=== PATIENT | female | born 1980 | race American Indian/Alaskan Native ===

== ENCOUNTER 2017-05-08 21:44 | Inpatient (IN) | payer SELFPAY ==
[2017-05-08] MEDS ORDERED: DUONEB *Not for PRN Use IH ONE ×2 (22:04→23:16)
[2017-05-08 22:14] LABS: Basophils % (Auto) 0.5 % (0.0-1.8); Eosinophils % (Auto) 0.7 % (0.0-4.3); Mean Corpuscular HGB Conc 31 % (30-34); Mean Corpuscular Hemoglobin 28 pg (28-32); Mean Corpuscular Volume 91 fl (79-97); Platelet Count 261 K/mm3 (140-440); Red Blood Count 4.44 M/mm3 (3.65-5.03); Red Cell Distribution Width 15.9 % (13.2-15.2); White Blood Count 7.8 K/mm3 (4.5-11.0)
[2017-05-08 22:15] LABS: Hematocrit 40.4 % (30.3-42.9); Hemoglobin 12.4 gm/dl (10.1-14.3)
[2017-05-08 22:33] LABS: Blood Urea Nitrogen 11 mg/dL (7-17); Carbon Dioxide 25 mmol/L (22-30)
[2017-05-08 22:34] LABS: Anion Gap 16 mmol/L; BUN/Creatinine Ratio 13.75; Chloride 99.6 mmol/L (98-107); Glucose 94 mg/dL (65-100); Potassium 3.6 mmol/L (3.6-5.0); Sodium 137 mmol/L (137-145)
[2017-05-09] MEDS ORDERED: DUONEB *Not for PRN Use IH ONE (01:02)
[2017-05-09] MEDS ORDERED: MAGNESIUM SULFATE 2GM/50ML 2 GM/50 ML BAG IV ONE (01:03)
--- NOTE | 2017-05-09 01:09 | Emergency Department Report ---
ED Shortness of Breath HPI - General Chief Complaint: Chest Pain Stated Complaint: CHEST PAIN/SOB Time Seen by Provider: 05/09/17 00:21 Source: patient Mode of arrival: Ambulatory Limitations: No Limitations - History of Present Illness Initial Comments: 36-year-old female past medical history CVA, hypertension, smoker, asthma presents with complaint of worsening shortness of breath since this morning. On exam patient is audibly wheezing states she feels very short of breath speaking in broken sentences. Patient denies chest pain no pleuritic aspect to the symptoms. She does however state that she is beginning to feel chest pressure. Patient is accompanied by . States she has gotten progressively short of breath throughout the course of the day. States she ran out of her asthma medicines. MD Complaint: shortness of breath, "asthma attack" Onset/Timin -: This morning Severity: severe Quality: other (shortness of breath) Consistency: constant Improves With: nothing Known History Of: asthma Context: smoke/fume exposure - Related Data Home Oxygen Therapy: No Previous Rx's Medication Instructions Recorded Last Taken Type Pregabalin [Lyrica] 25 mg PO BID #60 capsule 09/03/16 Unknown Rx Allergies Allergy/AdvReac Type Severity Reaction Status Date / Time morphine Allergy Angioedema Verified 05/09/17 03:22 acetaminophen [From Percocet] AdvReac Unknown Verified 05/09/17 03:22 oxycodone HCl [From Percocet] AdvReac Unknown Verified 05/09/17 03:22 ED Review of Systems ROS: Stated complaint: CHEST PAIN/SOB Other details as noted in HPI Constitutional: denies: chills, fever Eyes: denies: eye pain, eye discharge, vision change ENT: denies: ear pain, throat pain Respiratory: shortness of breath, SOB at rest, wheezing. denies: cough Cardiovascular: denies: chest pain, palpitations Endocrine: no symptoms reported Gastrointestinal: denies: abdominal pain, nausea, diarrhea Genitourinary: denies: urgency, dysuria, discharge Musculoskeletal: denies: back pain, joint swelling, arthralgia Skin: denies: rash, lesions Neurological: denies: headache, weakness, paresthesias Psychiatric: denies: anxiety, depression Hematological/Lymphatic: denies: easy bleeding, easy bruising ED Past Medical Hx - Past Medical History Hx CVA: Yes (right side weakness.) Hx Asthma: Yes - Surgical History Additional Surgical History: tubal ligation/ csection - Social History Smoking Status: Current Every Day Smoker Substance Use Type: None - Medications Home Medications: Home Medications Medication Instructions Recorded Confirmed Last Taken Type Pregabalin [Lyrica] 25 mg PO BID #60 capsule 09/03/16 Unknown Rx ED Physical Exam - General Limitations: No Limitations General appearance: alert, in no apparent distress - Head Head exam: Present: atraumatic, normocephalic - Eye Eye exam: Present: normal appearance, PERRL, EOMI - ENT ENT exam: Present: mucous membranes moist - Neck Neck exam: Present: normal inspection - Respiratory Respiratory exam: Present: wheezes (patient has loud wheezing bilaterally in both lung devine). Absent: respiratory distress - Cardiovascular Cardiovascular Exam: Present: regular rate, normal rhythm. Absent: systolic murmur, diastolic murmur, rubs, gallop - GI/Abdominal GI/Abdominal exam: Present: soft, normal bowel sounds - Extremities Exam Extremities exam: Present: normal inspection - Back Exam Back exam: Present: normal inspection - Neurological Exam Neurological exam: Present: alert, oriented X3 - Psychiatric Psychiatric exam: Present: normal affect, normal mood - Skin Skin exam: Present: warm, dry, intact, normal color. Absent: rash ED Course Vital Signs 05/08/17 05/08/17 05/08/17 21:58 22:18 22:30 Temperature 98.8 F Pulse Rate 89 Pulse Rate [ 75 77 Throughout] Respiratory 16 Rate Respiratory 20 20 Rate [ Throughout] Blood Pressure 143/83 Blood Pressure [Right] O2 Sat by Pulse 96 Oximetry 05/08/17 05/08/17 05/09/17 23:19 23:25 01:45 Temperature Pulse Rate 104 H Pulse Rate [ 78 80 Throughout] Respiratory 24 Rate Respiratory 20 20 Rate [ Throughout] Blood Pressure Blood Pressure 115/69 [Right] O2 Sat by Pulse 100 Oximetry 05/09/17 05/09/17 05/09/17 02:24 02:56 03:12 Temperature Pulse Rate 85 105 H Pulse Rate [ Throughout] Respiratory 30 H 21 26 H Rate Respiratory Rate [ Throughout] Blood Pressure 140/83 Blood Pressure 140/83 [Right] O2 Sat by Pulse 100 Oximetry 05/09/17 03:22 Temperature Pulse Rate Pulse Rate [ 87 Throughout] Respiratory Rate Respiratory 20 Rate [ Throughout] Blood Pressure Blood Pressure [Right] O2 Sat by Pulse Oximetry ED Medical Decision Making - Lab Data Result diagrams: 05/08/17 22:06 05/08/17 22:06 - Medical Decision Making A/P: Asthma exacerbation wheezing, shortness of breath 1-EKG sinus rhythm, chest x-ray within normal limits, troponin negative 2 2-patient has received 3 DuoNeb treatments 125 mg of Solu-Medrol and IV magnesium with minimal improvement of her symptoms. Patient states she feels very short of breath even though she has received all the treatments. Patient still visibly short of breath at rest lying down on stretcher 3-I discussed the case with Dr. Chambers and will admit the patient for persistent asthma exacerbation and shortness of breath 4- I ordered respiratory to put patient on BiPAP to assist with work of breathing 5- i informed Dr. Bain of need for admission, I discused case with her Critical care attestation.: If time is entered above; I have spent that time in minutes in the direct care of this critically ill patient, excluding procedure time. ED Disposition Clinical Impression: Asthma attack Disposition: -09 OP ADMIT IP TO THIS HOSP Is pt being admited?: Yes Does the pt Need Aspirin: No Condition: Stable Referrals: PRIMARY CARE, [Primary Care Provider] - 3-5 Days
--- NOTE | 2017-05-09 01:36 | XRay Report ---
FINAL REPORT PROCEDURE: XR CHEST ROUTINE 2V TECHNIQUE: PA and lateral chest radiographs were obtained. CPT 53217 HISTORY: sob COMPARISON: No prior studies are available for comparison. FINDINGS: Heart: Normal. Mediastinum/Vessels: Normal. Lungs/Pleural space: Normal. Bony thorax: No acute osseous abnormality. Other: IMPRESSION: Normal examination.
[2017-05-09] MEDS ORDERED: PROVENTIL IH ONE (03:06)
[2017-05-09] MEDS ORDERED: ZOFRAN IV PRN (04:39)
[2017-05-09] MEDS ORDERED: DULCOLAX PR PRN (04:39)
[2017-05-09] MEDS ORDERED: MILK OF MAGNESIA PO PRN (04:39)
--- NOTE | 2017-05-09 04:39 | History and Physical Report ---
History of Present Illness Date of examination: 05/09/17 History of present illness: 36-year-old woman with a history of hypertension, stroke comes emergency room with complaints of shortness of breath at started this morning, wheezing and cough productive of brown phlegm. Patient ran out of her nebulizer treatment Patient denies chest pain, palpitation, s abdominal pain, hematochezia, dysuria , frequency, focal weakness, dysarthria, fever chills, polydipsia polyuria, hot or cold intolerance, easy bruisability, or rash or bleeding from mucosal membrane, rhinorrhea, epistaxis, earache, tinnitus, blurry vision, eye discharge , anxiety, depression. Other review of systems negative PAST SURGICAL HISTORY: 2 SOCIAL HISTORY: Smoke Cigarettes, no alcohol or drugs FAMILY HISTORY: Hypertension Medications and Allergies Allergies Allergy/AdvReac Type Severity Reaction Status Date / Time morphine Allergy Angioedema Verified 05/09/17 03:22 acetaminophen [From Percocet] AdvReac Unknown Verified 05/09/17 03:22 oxycodone HCl [From Percocet] AdvReac Unknown Verified 05/09/17 03:22 Home Medications Medication Instructions Recorded Confirmed Last Taken Type Pregabalin [Lyrica] 25 mg PO BID #60 capsule 09/03/16 05/09/17 05/08/17 21:00 Rx Exam - Physical Exam Narrative exam: Gen. appearance: Patient lying in bed, no apparent distress BiPAP HEENT: Normocephalic, atraumatic, pupils equally round and reactive to light, extraocular movement intact, and no sclericterus,. No JVD or thyromegaly or nodule,neck supple, no carotid bruit ,mucous membranes moist, no exudate or erythema Heart: S1, S2, regular rate and rhythm Lungs: Wheezing bilaterally, decreased air entry ,breathing comfortable Abdomen: Positive bowel sounds, nontender, nondistended, no organomegaly Extremity: No edema, cyanosis, clubbing Skin: No rash, nodules, warm, dry Neuro: Oriented 3, cranial nerves II-12 intact, speech is fluent, motor and sensory intact - Constitutional Vitals: Temp Pulse Resp BP Pulse Ox 98.8 F 83 23 140/83 100 05/08/17 21:58 05/09/17 04:15 05/09/17 04:15 05/09/17 03:12 05/09/17 02:56 Results - Labs CBC & Chem 7: 05/08/17 22:06 05/08/17 22:06 Labs: Abnormal lab results 05/08/17 Range/Units 22:06 RDW 15.9 H (13.2-15.2) % Assessment and Plan Acute respiratory failure Asthma exacerbation Hypertension History of CVA Admit to medicine Continue BiPAP Start high-dose steroids, nebulizer treatment, antibiotic Obtain sputum culture, start DVT prophylaxis
[2017-05-09] MEDS: ZITHROMAX 500 MG in NACL 0.9% 250ML 250 ML IV SCH (06:14)
[2017-05-09] MEDS: DUONEB *Not for PRN Use IH SCH ×3 (09:49→21:33)
[2017-05-09] MEDS ORDERED: LOVENOX SUB-Q SCH (10:00)
[2017-05-09] MEDS: LOVENOX SUB-Q SCH (10:30)
[2017-05-09] MEDS: LYRICA PO SCH ×2 (10:31→21:45)
[2017-05-09] MEDS: FIORICET PO PRN ×2 (17:49→21:45)
[2017-05-10] MEDS: DUONEB *Not for PRN Use IH SCH ×4 (02:29→20:56)
[2017-05-10] MEDS: ZITHROMAX 500 MG in NACL 0.9% 250ML 250 ML IV SCH (05:07)
[2017-05-10] MEDS: FIORICET PO PRN ×3 (05:42→20:34)
[2017-05-10 07:50] LABS: Hematocrit 33.5 % (30.3-42.9); Hemoglobin 10.8 gm/dl (10.1-14.3); Mean Corpuscular HGB Conc 32 % (30-34); Mean Corpuscular Hemoglobin 27 pg (28-32); Mean Corpuscular Volume 84 fl (79-97); Platelet Count 236 K/mm3 (140-440); Red Blood Count 3.99 M/mm3 (3.65-5.03); Red Cell Distribution Width 15.1 % (13.2-15.2)
[2017-05-10 08:08] LABS: BUN/Creatinine Ratio 15.71; Blood Urea Nitrogen 11 mg/dL (7-17); Calcium 8.8 mg/dL (8.4-10.2); Carbon Dioxide 20 mmol/L (22-30); Chloride 102.2 mmol/L (98-107); Glucose 170 mg/dL (65-100); Sodium 139 mmol/L (137-145)
[2017-05-10 08:13] LABS: White Blood Count 20.2 K/mm3 (4.5-11.0)
[2017-05-10 08:47] LABS: Anion Gap 21 mmol/L; Potassium 4.7 mmol/L (3.6-5.0)
[2017-05-10] MEDS: LOVENOX SUB-Q SCH (09:29)
[2017-05-10] MEDS: LYRICA PO SCH ×2 (09:30→22:25)
[2017-05-10 10:15] LABS: Basophils % (Manual) 0 % (0.0-1.8); Blastocytes % (Manual) 0 %; Eosinophils % (Manual) 0 % (0.0-4.3); Total Cells Counted Percent 0
[2017-05-10 10:16] LABS: Anisocytosis 1+; Diff Status Complete; Platelet Estimate Cons
[2017-05-10] MEDS ORDERED: PNEUMOVAX 23 IM ONE (12:00)
--- NOTE | 2017-05-10 16:40 | Progress Note ---
Assessment and Plan - Patient Problems (1) Acute respiratory failure with hypoxia Current Visit: Yes Status: Acute Plan to address problem: Patient started on Neb treatments Steroids and Abx Improving clinically (2) Leukocytosis (leucocytosis) Current Visit: Yes Status: Acute Qualifiers: Leukocytosis type: L Plan to address problem: Sec to steroids?? 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 Plan to address problem: on ASA 81 mg po qd (5) HTN (hypertension) Current Visit: Yes Status: Chronic Qualifiers: Hypertension type: essential hypertension Qualified Code(s): I10 - Essential (primary) hypertension Plan to address problem: Added Losartan 100 mg po qd (6) DVT prophylaxis Current Visit: Yes Status: Acute (7) Deep vein thrombosis (DVT) prophylaxis prescribed at discharge Current Visit: Yes Status: Acute Plan to address problem: On lovenox 40 mg sq qd Subjective Date of service: 05/10/17 Principal diagnosis: Asthma exacerbation and resp failure Interval history: Improved.Some Sob present. Meds adjusted today.. Objective - Exam Narrative Exam: Patient comfortable. - Constitutional Vitals: Vital Signs - 12hr 05/10/17 05/10/17 05/10/17 05:00 07:55 11:40 Temperature 98.9 F 98.7 F 97.4 F L Pulse Rate Pulse Rate [ Posterior Bilateral Throughout] Pulse Rate [ 80 68 58 L Right Radial] Pulse Rate [ Throughout] Respiratory 20 20 24 Rate Respiratory Rate [Posterior Bilateral Throughout] Respiratory Rate [ Throughout] Blood Pressure 134/93 154/85 146/92 [Right Arm] O2 Sat by Pulse 98 98 100 Oximetry 05/10/17 05/10/17 05/10/17 14:12 14:25 14:26 Temperature Pulse Rate 76 Pulse Rate [ 80 78 Posterior Bilateral Throughout] Pulse Rate [ Right Radial] Pulse Rate [ 80 Throughout] Respiratory 24 Rate Respiratory 20 20 Rate [Posterior Bilateral Throughout] Respiratory 20 Rate [ Throughout] Blood Pressure [Right Arm] O2 Sat by Pulse 100 Oximetry General appearance: Present: no acute distress, well-nourished - EENT Eyes: PERRL, EOM intact ENT: hearing intact, clear oral mucosa Ears: bilateral: normal - Neck Neck: supple, normal ROM - Respiratory Respiratory effort: normal Respiratory: bilateral: diminished, rhonchi - Breasts Breasts: normal - Cardiovascular Heart rate: 80 Rhythm: regular Heart Sounds: Present: S1 & S2. Absent: gallop, rub Extremities: pulses intact, No edema, normal color, Full ROM - Gastrointestinal General gastrointestinal: Present: soft, non-tender, non-distended, normal bowel sounds - Genitourinary Female genitourinary: normal - Integumentary Integumentary: clear, warm, dry - Musculoskeletal Musculoskeletal: 1, strength equal bilaterally - Neurologic Neurologic: moves all extremities - Psychiatric Psychiatric: memory intact, appropriate mood/affect, intact judgment & insight - Labs CBC & Chem 7: 05/10/17 07:24 05/10/17 07:24 Labs: Abnormal lab results 05/10/17 05/10/17 Range/Units 07:24 07:24 WBC 20.2 H (4.5-11.0) K/mm3 MCH 27 L (28-32) pg Seg Neuts % (Manual) 98.0 H (40.0-70.0) % Lymphocytes % (Manual) 2.0 L (13.4-35.0) % Seg Neutrophils # Man 19.8 H (1.8-7.7) K/mm3 Lymphocytes # (Manual) 0.4 L (1.2-5.4) K/mm3 Carbon Dioxide 20 L (22-30) mmol/L Glucose 170 H (65-100) mg/dL
[2017-05-10] MEDS ORDERED: PROVENTIL IH PRN (23:24)
[2017-05-11] MEDS: FIORICET PO PRN ×3 (00:18→14:17)
[2017-05-11] MEDS: DUONEB *Not for PRN Use IH SCH ×3 (02:51→14:00)
[2017-05-11] MEDS: ZITHROMAX 500 MG in NACL 0.9% 250ML 250 ML IV SCH (05:17)
[2017-05-11 09:01] VITALS: BP 140/91
[2017-05-11] MEDS ORDERED: COZAAR PO SCH (10:00)
--- NOTE | 2017-05-11 10:11 | Discharge Summary ---
Providers - Providers Date of Admission: 05/09/17 04:39 Date of discharge: 05/11/17 Attending physician: CAMILLA WATTS MD Primary care physician: NEDA MIRELES MD Hospitalization Condition: Stable Hospital course: 36-year-old woman with a past medical history of hypertension, stroke who presents to the emergency room with complaints of shortness of breath. Patient was diagnosed with acute respiratory failure ,asthma exacerbation, hypertension and leukocytosis. She has been Treated with empiric antibiotic for respiratory infection. Patient completed the full course of antibiotic. Also she has treated with nebulizer treatment, IV steroid and oxygen supplement. Patient currently on room air with oxygen saturation greater than 95%, no acute respiratory distress noted. Patient ambulated the hallways without shortness of breath. Patient advice to follow up with her primary provider for her asthma. Disposition: DC- TO HOME OR SELFCARE Core Measure Documentation - Palliative Care Palliative Care/ Comfort Measures: Not Applicable - Core Measures Any of the following diagnoses?: none Exam - Constitutional Vitals: Temp Pulse Resp BP Pulse Ox 98.3 F 85 20 140/91 98 05/11/17 08:00 05/11/17 08:17 05/11/17 08:17 05/11/17 08:00 05/11/17 08:02 General appearance: Present: no acute distress - EENT Eyes: Present: PERRL ENT: hearing intact - Neck Neck: Present: supple - Respiratory Respiratory effort: normal Respiratory: bilateral: wheezing (mild, medically cleared) - Cardiovascular Heart rate: 104 Rhythm: regular Heart Sounds: Present: S1 & S2 - Extremities Extremities: no ischemia Peripheral Pulses: within normal limits - Abdominal General gastrointestinal: Present: soft, non-tender Female genitourinary: Present: deferred - Rectal Rectal Exam: deferred - Integumentary Integumentary: Present: clear, warm, dry - Musculoskeletal Musculoskeletal: strength equal bilaterally - Psychiatric Psychiatric: appropriate mood/affect - Neurologic Neurologic: CNII-XII intact - Allied Health Allied health notes reviewed: nursing Plan Activity: no restrictions Weight Bearing Status: Weight Bear as Tolerated Diet: low fat Follow up with: PRIMARY CARE, [Primary Care Provider] - 3-5 Days Prescriptions: ALBUTEROL Inhaler [ProAir HFA Inhaler] 2 puff IH QID PRN #1 inhalation PRN Reason: Shortness Of Breath ALBUTEROL NEB's [Proventil 0.083% NEBS] 2.5 mg IH Q4HRT PRN #120 nebu PRN Reason: Shortness Of Breath Butalb/Acetamin/Caff 50-325-40 [Fioricet] 2 tab PO Q4H PRN #14 tablet PRN Reason: Headache Fluticasone/Salmeterol [Advair Diskus 250-50 mcg] 1 puff IH BID #1 disk.w.dev Losartan [Cozaar] 100 mg PO QDAY #60 tablet Montelukast [Singulair] 10 mg PO QPM #30 tablet Prednisone [predniSONE 10 mg (6-Day Pack, 21 Tabs)] 10 mg PO .TAPER #1 tab.ds.pk
[2017-05-11] MEDS: LOVENOX SUB-Q SCH (11:00)
[2017-05-11] MEDS: LYRICA PO SCH (11:02)
--- NOTE | 2017-05-11 16:30 | Admit Criteria Form ---
Admission Criteria Documentation: RESPIRATORY FAILURE GRG Clinical Indications for Admission to Inpatient Care (Place 'X' for any and all applicable criteria): Hospital admission is needed for appropriate care of the patient because of acute respiratory failure or insufficiency as indicated by ANY ONE of the following(1)(2)(3)(4)(5)(6)(7)(8): [X ]I. Mechanical ventilation needed (acute invasive or noninvasive) [ ]II. Severe ventilation deficit as indicated by ANY ONE of the following (9) [ ]a) Respiratory acidosis (pH less than 7.32 and partial pressure of carbon dioxide greater than 40 mm Hg (5.3 kPa)) [ ]b) Partial pressure of carbon dioxide greater than 44 mm Hg (5.9 kPa ) (new) [ ]c) Airflow measurements less than 25% of predicted (eg, peak expiratory flow rate less than 100 L/minute) [ ]d) Forced vital capacity less than 15 mL/kg of ideal body weight, or 50% decrease in vital capacity from baseline [ ]III. Noncardiac pulmonary edema not resolving with rapid emergency treatment (8) [ ]IV. Severe respiratory distress as indicated by ANY ONE of the following: [ ]a) Severe tachypnea (respiratory rate greater than 30, greater than 45 for 6-month-old, greater than 60 for ) [ ]b) Severe hypoxemia (partial pressure of oxygen less than 50 mm Hg ( 6.7 kPa) on greater than 50% oxygen or partial pressure of oxygen to FIO2 ratio less than 200) [ ]c) Mental status deterioration from respiratory disease [ ]V. Airway obstruction or inadequate protection [A](10)(11) The original [employer] content created by [employer] has been revised. The portions of the content which have been revised are identified through the use of italic text or in bold, and [employer] has neither reviewed nor approved the modified material. All other unmodified content is copyright [employer]. Please see references footnoted in the original [employer] edition 2016 Admission Criteria Met: Yes
--- NOTE | 2017-05-11 18:32 | Discharge Summary ---
Providers - Providers Date of Admission: 05/09/17 04:39 Attending physician: CAMILLA WATTS MD Primary care physician: MARKETING SERVICES COORDINATOR Hospitalization Condition: Stable Hospital course: 36-year-old woman with a previous history of asthma in childhood. He presented with a few days of worsening shortness of breath and wheezing. She had not been taking any medications she will have been in remission with regards asthma for many years. She was found to be some accessory muscles, and had respiratory failure, therefore she was treated with noninvasive rescue BiPAP, she was weaned to supplemental oxygen. She was treated with steroids antibiotics and aggressive nebulizer treatment. She clinically improves, she was weaned off steroids, exercise testing did not provoke any further wheezing, she was weaned off supplemental oxygen. She clinically improved, sent home on a steroid taper along with necessary inhalers. Discharge diagnoses Acute exacerbation of asthma Acute respiratory failure HTN Disposition: TO HOME OR SELFCARE Time spent for discharge: 35 minutes Core Measure Documentation - Palliative Care Palliative Care/ Comfort Measures: Not Applicable - Core Measures Any of the following diagnoses?: none Exam - Constitutional Vitals: Temp Pulse Resp BP Pulse Ox 98.3 F 104 H 18 140/91 98 05/11/17 08:00 05/11/17 14:00 05/11/17 14:00 05/11/17 11:02 05/11/17 08:02 General appearance: Present: no acute distress, well-nourished - EENT Eyes: Present: PERRL ENT: hearing intact, clear oral mucosa - Neck Neck: Present: supple, normal ROM - Respiratory Respiratory effort: normal Respiratory: bilateral: CTA - Cardiovascular Heart Sounds: Present: S1 & S2. Absent: rub, click - Extremities Extremities: pulses symmetrical, No edema Peripheral Pulses: within normal limits - Abdominal General gastrointestinal: Present: soft, non-tender, non-distended, normal bowel sounds Female genitourinary: Present: normal - Integumentary Integumentary: Present: clear, warm, dry - Musculoskeletal Musculoskeletal: gait normal, strength equal bilaterally - Psychiatric Psychiatric: appropriate mood/affect, intact judgment & insight - Neurologic Neurologic: CNII-XII intact, moves all extremities Plan Follow up with: PRIMARY CARE, [Primary Care Provider] - 3-5 Days Prescriptions: ALBUTEROL Inhaler [ProAir HFA Inhaler] 2 puff IH QID PRN #1 inhalation PRN Reason: Shortness Of Breath ALBUTEROL NEB's [Proventil 0.083% NEBS] 2.5 mg IH Q4HRT PRN #120 nebu PRN Reason: Shortness Of Breath Butalb/Acetamin/Caff 50-325-40 [Fioricet] 2 tab PO Q4H PRN #14 tablet PRN Reason: Headache Fluticasone/Salmeterol [Advair Diskus 250-50 mcg] 1 puff IH BID #1 disk.w.dev Losartan [Cozaar] 100 mg PO QDAY #60 tablet Montelukast [Singulair] 10 mg PO QPM #30 tablet Prednisone [predniSONE 10 mg (6-Day Pack, 21 Tabs)] 10 mg PO .TAPER #1 tab.ds.pk
[2017-05-12] MEDS ORDERED: ZITHROMAX PO SCH (10:00)
== END 2017-05-11 18:45 | disposition home or self-care (01) | DRG 189 ==
LOC: ED 21:44 → 4A 05-09 04:39 → 3A 05-10 21:33
PROVIDERS: ADMIT Internal Medicine; ATTEND Internal Medicine
PROC: 5A09357 Assistance with Respiratory Ventilation, Less than 24 Consecutive Hours, Continuous Positive Airway Pressure (ICD-10-PCS; principal; 2017-05-09)
DX: J96.01 Acute respiratory failure with hypoxia (principal); J45.901 Unspecified asthma with (acute) exacerbation; Z86.73 Personal history of transient ischemic attack (TIA), and cerebral infarction without residual deficits; I10 Essential (primary) hypertension; Z82.49 Family history of ischemic heart disease and other diseases of the circulatory system; Z88.8 Allergy status to other drugs, medicaments and biological substances; Z88.5 Allergy status to narcotic agent; Z98.51 Tubal ligation status; F17.210 Nicotine dependence, cigarettes, uncomplicated; D72.829 Elevated white blood cell count, unspecified
CPT/HCPCS: 36415; 71020; 80048; 83735; 84484; 85007; 85025; 90732; 93005; 93010; 94640; 94660; 96365; 96372; J0456; J1650; J2930; J3475; J7050

== ENCOUNTER 2017-09-11 19:54 | Emergency (ER) | payer SELFPAY ==
[2017-09-11] MEDS ORDERED: TORADOL IM ONE (22:35)
--- NOTE | 2017-09-11 22:39 | Emergency Department Report ---
ED General Adult HPI - General Chief complaint: Pain General Stated complaint: PAIN UPPER EXTREMITIES; BACK/NECK PAIN Time Seen by Provider: 09/11/17 21:22 Source: patient Mode of arrival: Ambulatory Limitations: No Limitations - History of Present Illness Initial comments: 37 yo female who comes in today due to chronic neck/back pain times one month. She denies any mechanism of injury. 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 Denies any pertinent past medical history. Onset/Timin -: month(s) Location: neck, back Radiation: other (left upper extremity ) Severity scale (0 -10): 5 Quality: burning, aching Consistency: intermittent Improves with: none Worsens with: movement Associated Symptoms: denies other symptoms Treatments Prior to Arrival: none - Related Data Previous Rx's Medication Instructions Recorded Last Taken Type Pregabalin [Lyrica] 25 mg PO BID #60 capsule 09/03/16 09/11/17 Rx ALBUTEROL Inhaler [ProAir HFA 2 puff IH QID PRN #1 inhalation 05/11/17 1 Day Ago Rx Inhaler] ALBUTEROL NEB's [Proventil 0.083% 2.5 mg IH Q4HRT PRN #120 nebu 05/11/17 Rx NEBS] Butalb/Acetamin/Caff 50-325-40 2 tab PO Q4H PRN #14 tablet 05/11/17 09/11/17 Rx [Fioricet] Fluticasone/Salmeterol [Advair 1 puff IH BID #1 disk.w.dev 05/11/17 09/11/17 Rx Diskus 250-50 mcg] Losartan [Cozaar] 100 mg PO QDAY #60 tablet 05/11/17 09/11/17 Rx Montelukast [Singulair] 10 mg PO QPM #30 tablet 05/11/17 Unknown Rx Prednisone [predniSONE 10 mg 10 mg PO .TAPER #1 tab.ds.pk 05/11/17 Unknown Rx (6-Day Pack, 21 Tabs)] Allergies Allergy/AdvReac Type Severity Reaction Status Date / Time ibuprofen Allergy Angioedema Verified 09/11/17 20:28 morphine Allergy Angioedema Verified 05/09/17 03:22 acetaminophen [From Percocet] AdvReac Unknown Verified 05/09/17 03:22 oxycodone HCl [From Percocet] AdvReac Unknown Verified 05/09/17 03:22 ED Review of Systems ROS: Stated complaint: PAIN UPPER EXTREMITIES; BACK/NECK PAIN Other details as noted in HPI Constitutional: denies: chills, fever Eyes: denies: eye pain, eye discharge, vision change ENT: denies: ear pain, throat pain Respiratory: denies: cough, shortness of breath, wheezing Cardiovascular: denies: chest pain, palpitations Endocrine: no symptoms reported Gastrointestinal: denies: abdominal pain, nausea, diarrhea Genitourinary: denies: urgency, dysuria, discharge Musculoskeletal: as per HPI Skin: denies: rash, lesions Neurological: denies: headache, weakness, paresthesias Psychiatric: denies: anxiety, depression Hematological/Lymphatic: denies: easy bleeding, easy bruising ED Past Medical Hx - Past Medical History Hx CVA: Yes (right side weakness.) Hx Asthma: Yes - Surgical History Additional Surgical History: tubal ligation/ csection - Social History Smoking Status: Current Some Day Smoker Substance Use Type: Alcohol - Medications Home Medications: Home Medications Medication Instructions Recorded Confirmed Last Taken Type Pregabalin [Lyrica] 25 mg PO BID #60 capsule 09/03/16 09/11/17 09/11/17 Rx ALBUTEROL Inhaler [ProAir HFA 2 puff IH QID PRN #1 inhalation 05/11/17 09/11/17 1 Day Ago Rx Inhaler] ALBUTEROL NEB's [Proventil 0.083% 2.5 mg IH Q4HRT PRN #120 nebu 05/11/1709/11/17 Rx NEBS] Butalb/Acetamin/Caff 50-325-40 2 tab PO Q4H PRN #14 tablet 05/11/17 09/11/1708/18 Rx [Fioricet] Fluticasone/Salmeterol [Advair 1 puff IH BID #1 disk.w.dev 05/11/17 09/11/1708/18 Rx Diskus 250-50 mcg] Losartan [Cozaar] 100 mg PO QDAY #60 tablet 05/11/17 09/11/17 09/11/17 Rx Montelukast [Singulair] 10 mg PO QPM #30 tablet 05/11/17 09/11/17 Unknown Rx Prednisone [predniSONE 10 mg 10 mg PO .TAPER #1 tab.ds.pk 05/11/17 09/11/17 Unknown Rx (6-Day Pack, 21 Tabs)] ED Physical Exam - General Limitations: No Limitations General appearance: alert, in no apparent distress - Head Head exam: Present: atraumatic, normocephalic - Eye Eye exam: Present: normal appearance - ENT ENT exam: Present: mucous membranes moist - Neck Neck exam: Present: normal inspection - Respiratory Respiratory exam: Present: normal lung sounds bilaterally. Absent: respiratory distress - Cardiovascular Cardiovascular Exam: Present: regular rate, normal rhythm. Absent: systolic murmur, diastolic murmur, rubs, gallop - GI/Abdominal GI/Abdominal exam: Present: soft, normal bowel sounds - Back Exam Back exam: Present: normal inspection - Neurological Exam Neurological exam: Present: alert, oriented X3 - Psychiatric Psychiatric exam: Present: normal affect, normal mood - Skin Skin exam: Present: warm, dry, intact, normal color. Absent: rash ED Course Vital Signs 09/11/17 20:30 Temperature 97.1 F L Pulse Rate 93 H Respiratory 16 Rate Blood Pressure 120/66 O2 Sat by Pulse 100 Oximetry Critical care attestation.: If time is entered above; I have spent that time in minutes in the direct care of this critically ill patient, excluding procedure time. ED Disposition Clinical Impression: Radiculopathy of cervical spine, Cervical strain, Lumbosacral pain Disposition: - TO HOME OR SELFCARE Is pt being admited?: No Does the pt Need Aspirin: No Condition: Stable Instructions: Cervical Spine Strain (ED), Cervical Radiculopathy (ED), Low Back Strain (ED), Chronic Pain (ED) Additional Instructions: Please establish with a provider on discharge. Referrals: PRIMARY CARE,MD [Primary Care Provider] - 3-5 Days Time of Disposition: 22:45
[2017-09-12 02:37] VITALS: BP 121/67
== END 2017-09-12 00:01 | disposition home or self-care (01) ==
LOC: ED 19:54
DX: M54.12 Radiculopathy, cervical region (principal); S16.1XXA Strain of muscle, fascia and tendon at neck level, initial encounter; M54.5 Low back pain; F17.210 Nicotine dependence, cigarettes, uncomplicated; Z86.73 Personal history of transient ischemic attack (TIA), and cerebral infarction without residual deficits; Z88.6 Allergy status to analgesic agent; Z88.8 Allergy status to other drugs, medicaments and biological substances; X58.XXXA Exposure to other specified factors, initial encounter; Y93.89 Activity, other specified; Y92.89 Other specified places as the place of occurrence of the external cause; Y99.8 Other external cause status
CPT/HCPCS: 96372; 99282; J2930

== ENCOUNTER 2018-04-11 15:32 | Emergency (ER) | payer SELFPAY ==
[2018-04-11 15:46] VITALS: BP 136/82
--- NOTE | 2018-04-11 16:22 | Emergency Department Report ---
ED General Adult HPI - General Chief complaint: Extremity Injury, Lower Stated complaint: EYE IRRITATION Time Seen by Provider: 04/11/18 15:54 Source: patient Mode of arrival: Ambulatory Limitations: No Limitations - History of Present Illness Initial comments: Ms. Sears is a 37-year-old female who presents with left eye irritation and bilateral leg pain. a bug flew into her eye. she has had itchy sensation ever since. No visual changes no erythema no purulence For 1 week she has bilateral anterior thigh pain. Worse with movement. Worse with flexing. She works long hours on her feet. 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 She denies any trauma. - Related Data Previous Rx's Medication Instructions Recorded Last Taken Type Pregabalin [Lyrica] 25 mg PO BID #60 capsule 09/03/16 09/11/17 Rx ALBUTEROL Inhaler [ProAir HFA 2 puff IH QID PRN #1 inhalation 05/11/17 1 Day Ago Rx Inhaler] ~09/10/17 ALBUTEROL NEB's [Proventil 0.083% 2.5 mg IH Q4HRT PRN #120 nebu 05/11/17 Rx NEBS] Butalb/Acetamin/Caff 50-325-40 2 tab PO Q4H PRN #14 tablet 05/11/17 09/11/17 Rx [Fioricet] Fluticasone/Salmeterol [Advair 1 puff IH BID #1 disk.w.dev 05/11/17 09/11/17 Rx Diskus 250-50 mcg] Losartan [Cozaar] 100 mg PO QDAY #60 tablet 05/11/17 09/11/17 Rx Montelukast [Singulair] 10 mg PO QPM #30 tablet 05/11/17 Unknown Rx Prednisone [predniSONE 10 mg 10 mg PO .TAPER #1 tab.ds.pk 05/11/17 Unknown Rx (6-Day Pack, 21 Tabs)] Allergies Allergy/AdvReac Type Severity Reaction Status Date / Time ibuprofen Allergy Angioedema Verified 09/11/17 20:28 morphine Allergy Angioedema Verified 05/09/17 03:22 acetaminophen [From Percocet] AdvReac Unknown Verified 05/09/17 03:22 oxycodone HCl [From Percocet] AdvReac Unknown Verified 05/09/17 03:22 ED Review of Systems ROS: Stated complaint: EYE IRRITATION Other details as noted in HPI Constitutional: denies: fever, malaise Respiratory: denies: cough Cardiovascular: denies: chest pain Gastrointestinal: denies: abdominal pain, nausea, vomiting Skin: denies: rash ED Past Medical Hx - Past Medical History Previous Medical History?: Yes Hx Hypertension: Yes Hx CVA: Yes (right side weakness.) Hx Asthma: Yes - Surgical History Additional Surgical History: tubal ligation/ csection - Social History Smoking Status: Never Smoker Substance Use Type: None - Medications Home Medications: Home Medications Medication Instructions Recorded Confirmed Last Taken Type Pregabalin [Lyrica] 25 mg PO BID #60 capsule 09/03/16 09/11/17 09/11/17 Rx ALBUTEROL Inhaler [ProAir HFA 2 puff IH QID PRN #1 inhalation 05/11/17 09/11/17 1 Day Ago Rx Inhaler] ~09/10/17 ALBUTEROL NEB's [Proventil 0.083% 2.5 mg IH Q4HRT PRN #120 nebu 05/11/1709/11/17 Rx NEBS] Butalb/Acetamin/Caff 50-325-40 2 tab PO Q4H PRN #14 tablet 05/11/17 09/11/1708/18 Rx [Fioricet] Fluticasone/Salmeterol [Advair 1 puff IH BID #1 disk.w.dev 05/11/17 09/11/1708/18 Rx Diskus 250-50 mcg] Losartan [Cozaar] 100 mg PO QDAY #60 tablet 05/11/17 09/11/17 09/11/17 Rx Montelukast [Singulair] 10 mg PO QPM #30 tablet 05/11/17 09/11/17 Unknown Rx Prednisone [predniSONE 10 mg 10 mg PO .TAPER #1 tab.ds.pk 05/11/17 09/11/17 Unknown Rx (6-Day Pack, 21 Tabs)] ED Physical Exam - General Limitations: No Limitations General appearance: alert, in no apparent distress - Head Head exam: Present: atraumatic, normocephalic - Eye Eye exam: Present: normal appearance, PERRL, EOMI. Absent: scleral icterus, conjunctival injection, nystagmus, periorbital swelling, periorbital tenderness - ENT ENT exam: Present: mucous membranes moist - Neck Neck exam: Present: normal inspection - Respiratory Respiratory exam: Present: normal lung sounds bilaterally. Absent: respiratory distress, wheezes, rales, rhonchi - Cardiovascular Cardiovascular Exam: Present: regular rate, normal rhythm, normal heart sounds. Absent: systolic murmur, diastolic murmur, rubs, gallop - GI/Abdominal GI/Abdominal exam: Present: soft, normal bowel sounds - Extremities Exam Extremities exam: Present: normal inspection, full ROM. Absent: tenderness - Back Exam Back exam: Present: normal inspection, full ROM. Absent: tenderness, CVA tenderness (R), CVA tenderness (L), muscle spasm, paraspinal tenderness, vertebral tenderness - Neurological Exam Neurological exam: Present: alert, oriented X3 - Psychiatric Psychiatric exam: Present: normal affect, normal mood - Skin Skin exam: Present: warm, dry, intact, normal color. Absent: rash ED Course Vital Signs 04/11/18 15:42 Temperature 97.8 F Pulse Rate 70 Respiratory 16 Rate Blood Pressure 136/82 O2 Sat by Pulse 98 Oximetry ED Medical Decision Making - Medical Decision Making 1. Left eye irritation without evidence of conjunctivitis or iritis. Do not suspect foreign body. Recommended [id number] eyedrops 2. 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 ED Disposition Clinical Impression: Irritation of left eye, Bilateral leg pain Disposition: DC-01 TO HOME OR SELFCARE Is pt being admited?: No Does the pt Need Aspirin: No Condition: Stable Instructions: Muscle Cramp (ED) Forms: Work/School Release Form(ED) Time of Disposition: 16:24
== END 2018-04-11 16:40 | disposition home or self-care (01) ==
LOC: ED 15:32
DX: H57.8 Other specified disorders of eye and adnexa (principal); M79.604 Pain in right leg; M79.605 Pain in left leg; I10 Essential (primary) hypertension; J45.909 Unspecified asthma, uncomplicated; Z98.51 Tubal ligation status; Z86.73 Personal history of transient ischemic attack (TIA), and cerebral infarction without residual deficits; Z88.6 Allergy status to analgesic agent; Z88.5 Allergy status to narcotic agent
CPT/HCPCS: 99282

== ENCOUNTER 2019-02-17 13:56 | Emergency (ER) | payer OTHER ==
--- NOTE | 2019-02-17 14:08 | Emergency Department Report ---
Blank Doc - Documentation Documentation: This is a 38-year-old female that presents with generalized pain. This initial assessment/diagnostic orders/clinical plan/treatment(s) is/are subject to change based on patient's health status, clinical progression and re- assessment by fellow clinical providers in the ED. Further treatment and workup at subsequent clinical providers discretion. Patient/guardians urged not to elope from the ED as their condition may be serious if not clinically assessed and managed. Initial orders include: 1- Patient sent to [facility] for further evaluation and treatment 2- labs
[2019-02-17 14:10] VITALS: BP 114/76
[2019-02-17 14:31] LABS: Hematocrit 40.8 % (30.3-42.9); Hemoglobin 13.6 gm/dl (10.1-14.3); Lymphocytes % (Auto) 43.9 % (13.4-35.0); Mean Corpuscular HGB Conc 33 % (30-34); Mean Corpuscular Volume 87 fl (79-97); Monocytes % (Auto) 7.6 % (0.0-7.3); Platelet Count 269 K/mm3 (140-440); Red Blood Count 4.71 M/mm3 (3.65-5.03)
[2019-02-17 14:32] LABS: Basophils % (Auto) 0.6 % (0.0-1.8); Eosinophils # (Auto) 0.1 K/mm3 (0.0-0.4); Eosinophils % (Auto) 1.1 % (0.0-4.3); Lymphocytes # (Auto) 2.7 K/mm3 (1.2-5.4); Monocytes # (Auto) 0.5 K/mm3 (0.0-0.8)
[2019-02-17 14:47] LABS: Alanine Aminotransferase 17 units/L (7-56); Albumin 3.8 g/dL (3.9-5); BUN/Creatinine Ratio 10; Blood Urea Nitrogen 10 mg/dL (7-17); Calcium 8.4 mg/dL (8.4-10.2); Hemolysis Index 20
[2019-02-17 14:49] LABS: Bilirubin,Direct < 0.2 mg/dL (0-0.2)
--- NOTE | 2019-02-17 17:12 | Emergency Department Report ---
ED General Adult HPI - General Chief complaint: Pain General Stated complaint: NECK /RT FOOT PAIN Time Seen by Provider: 02/17/19 14:07 Source: patient Mode of arrival: Ambulatory Limitations: No Limitations - History of Present Illness Initial comments: Pt is a 38 yo female who presents to the ED with c/o left sided upper back pain, left sided lower back pain, and pain down the LLE that began this morning. She states that she woke up with it and believes she may have slept wrong. The patient denies any injury, fall, or trauma. She denies any numbness, tingling, weakness, or bowel/bladder incontinence. She denies ever having previously. She denies any PMHx. She states her only daily medication is low dose aspirin. Severity scale (0 -10): 10 - Related Data Previous Rx's Medication Instructions Recorded Last Taken Type Pregabalin [Lyrica] 25 mg PO BID #60 capsule 09/03/16 09/11/17 Rx ALBUTEROL Inhaler (OR & NICU) 2 puff IH QID PRN #1 inhalation 05/11/17 1 Day Ago Rx [ProAir HFA Inhaler] ~09/10/17 ALBUTEROL NEB's [Proventil 0.083% 2.5 mg IH Q4HRT PRN #120 nebu 05/11/17 09/11/17 Rx NEBS] Butalb/Acetamin/Caff 50-325-40 2 tab PO Q4H PRN #14 tablet 05/11/17 09/11/17 Rx [Fioricet] Fluticasone/Salmeterol [Advair 1 puff IH BID #1 disk.w.dev 05/11/17 09/11/17 Rx Diskus 250-50 mcg] Losartan [Cozaar] 100 mg PO QDAY #60 tablet 05/11/17 09/11/17 Rx Montelukast [Singulair] 10 mg PO QPM #30 tablet 05/11/17 Unknown Rx Cyclobenzaprine [Flexeril] 10 mg PO QHS PRN #10 tablet 02/17/19 Unknown Rx Nitrofurantoin Monohyd/M-Cryst 100 mg PO BID 5 Days #10 capsule 02/17/19 Unknown Rx [Macrobid 100 mg Capsule] Prednisone [predniSONE 10 mg 10 mg PO .TAPER #1 tab.ds.pk 02/17/19 Unknown Rx (6-Day Pack, 21 Tabs)] Allergies Allergy/AdvReac Type Severity Reaction Status Date / Time ibuprofen Allergy Angioedema Verified 09/11/17 20:28 morphine Allergy Angioedema Verified 05/09/17 03:22 acetaminophen [From Percocet] AdvReac Unknown Verified 05/09/17 03:22 oxycodone HCl [From Percocet] AdvReac Unknown Verified 05/09/17 03:22 ED Review of Systems ROS: Stated complaint: NECK /RT FOOT PAIN Other details as noted in HPI Comment: All other systems reviewed and negative ED Past Medical Hx - Past Medical History Previous Medical History?: Yes Hx Hypertension: Yes Hx CVA: Yes (right side weakness.) Hx Asthma: Yes - Surgical History Past Surgical History?: Yes Additional Surgical History: tubal ligation/ csection - Social History Smoking Status: Former Smoker Substance Use Type: None - Medications Home Medications: Home Medications Medication Instructions Recorded Confirmed Last Taken Type Pregabalin [Lyrica] 25 mg PO BID #60 capsule 09/03/16 09/11/17 09/11/17 Rx ALBUTEROL Inhaler (OR & NICU) 2 puff IH QID PRN #1 inhalation 05/11/17 09/11/17 1 Day Ago Rx [ProAir HFA Inhaler] ~09/10/17 ALBUTEROL NEB's [Proventil 0.083% 2.5 mg IH Q4HRT PRN #120 nebu 05/11/17 09/11/17 09/11/17 Rx NEBS] Butalb/Acetamin/Caff 50-325-40 2 tab PO Q4H PRN #14 tablet 05/11/17 09/11/17 09/11/17 Rx [Fioricet] Fluticasone/Salmeterol [Advair 1 puff IH BID #1 disk.w.dev 05/11/17 09/11/17 09/11/17 Rx Diskus 250-50 mcg] Losartan [Cozaar] 100 mg PO QDAY #60 tablet 05/11/17 09/11/17 09/11/17 Rx Montelukast [Singulair] 10 mg PO QPM #30 tablet 05/11/17 09/11/17 Unknown Rx Cyclobenzaprine [Flexeril] 10 mg PO QHS PRN #10 tablet 02/17/19 Unknown Rx Nitrofurantoin Monohyd/M-Cryst 100 mg PO BID 5 Days #10 capsule 02/17/19 Unknown Rx [Macrobid 100 mg Capsule] Prednisone [predniSONE 10 mg 10 mg PO .TAPER #1 tab.ds.pk 02/17/19 Unknown Rx (6-Day Pack, 21 Tabs)] ED Physical Exam - General Limitations: No Limitations General appearance: alert, in no apparent distress - Head Head exam: Present: atraumatic, normocephalic - Eye Eye exam: Present: normal appearance - ENT ENT exam: Present: mucous membranes moist - Neck Neck exam: Present: normal inspection, full ROM. Absent: tenderness - Respiratory Respiratory exam: Present: normal lung sounds bilaterally. Absent: respiratory distress, wheezes, rales, rhonchi, stridor, chest wall tenderness, accessory muscle use, decreased breath sounds, prolonged expiratory - Cardiovascular Cardiovascular Exam: Present: regular rate, normal rhythm, normal heart sounds. Absent: systolic murmur, diastolic murmur, rubs, gallop - Back Exam Back exam: Present: normal inspection, full ROM, paraspinal tenderness (pt has left sided T-spine and L-spine paraspinal muscular tenderness to palpation, no midline tenderness, no step offs, no deformities, pt has some pain in the pain with ROM of the right leg) - Neurological Exam Neurological exam: Present: alert, oriented X3, CN II-XII intact, normal gait, other (normal finger to nose, normal heel to rothman, 5/5 strength in the BLE, BUE, equal gas fitter helper strength, sensation intact, no focal neuro deficit). Absent: motor sensory deficit - Psychiatric Psychiatric exam: Present: normal affect, normal mood - Skin Skin exam: Present: warm, dry, intact ED Course Vital Signs 02/17/19 14:07 Temperature 98.1 F Pulse Rate 98 H Respiratory 16 Rate Blood Pressure 114/76 O2 Sat by Pulse 99 Oximetry ED Medical Decision Making - Lab Data Result diagrams: 02/17/19 14:20 02/17/19 14:20 - Medical Decision Making Pt is a 38 yo female who presents to the ED with c/o left sided upper back pain, left sided lower back pain, and pain down the LLE that began this morning. She states that she woke up with it and believes she may have slept wrong. The p atient denies any injury, fall, or trauma. She denies any numbness, tingling, weakness, or bowel/bladder incontinence. She denies ever having previously. She denies any PMHx. She states her only daily medication is low dose aspirin. Pt has left sided paraspinal tenderness to palpation, no midline tenderness, no neuro deficit. Symptoms and examination consistent with muscle strain and sciatica. Pt given steroid pack and muscle relaxer. Advised to only use muscle relaxer at night as needed and do not drive or operate heavy machinery. UA shows WBCs and leukocyte esterase consistent with UTI pt started on macrobid. Advised to take all medication as prescribed. Return to the emergency room for any new or worsening symptoms. Follow up with a PCP in the next 2-3 days. - Differential Diagnosis strain, sprain, sciatica Critical care attestation.: If time is entered above; I have spent that time in minutes in the direct care of this critically ill patient, excluding procedure time. ED Disposition Clinical Impression: Muscle strain Sciatica Qualifiers: Laterality: left Qualified Code(s): M54.32 - Sciatica, left side Back pain Qualifiers: Back pain location: low back pain Chronicity: acute Back pain laterality: left Sciatica presence: with sciatica Sciatica laterality: sciatica of left side Qualified Code(s): M54.42 - Lumbago with sciatica, left side UTI (urinary tract infection) Qualifiers: Urinary tract infection type: acute cystitis Hematuria presence: without hematuria Qualified Code(s): N30.00 - Acute cystitis without hematuria Disposition: TO HOME OR SELFCARE Is pt being admited?: No Does the pt Need Aspirin: No Condition: Stable Instructions: Muscle Strain (ED), Urinary Tract Infection in Women (ED), Sciatica (ED) Additional Instructions: Please follow up with an orthopedic spine doctor in the next 2-3 days. Please follow up with your primary care doctor in the next 2-3 days. Take medication as prescribed. Do not drive, work, or operate heavy machinery while taking muscle relaxer and only take at night as needed. Return to the emergency room for any new or worsening symptoms. Continue to drink plenty of water. [facility] Address: [address] [place] [address] Follow up in the next 2-3 days Prescriptions: Cyclobenzaprine [Flexeril] 10 mg PO QHS PRN #10 tablet PRN Reason: Muscle Spasm Nitrofurantoin Monohyd/M-Cryst [Macrobid 100 mg Capsule] 100 mg PO BID 5 Days #10 capsule Prednisone [predniSONE 10 mg (6-Day Pack, 21 Tabs)] 10 mg PO .TAPER #1 tab.ds.pk [facility]: [facility] [Primary Care Provider] - 2-3 Days orthopedic, spine [Other] - 2-3 Days Time of Disposition: 17:16 Print Language: CYMRO
[2019-02-17 18:02] LABS: Bacteria,Urine 1+ /HPF (Negative); Bilirubin,Urine NEG (Negative); Blood,Urine MOD (Negative); Calcium Oxalate Crystals,Urine 2+; Color,Urine Yellow (Yellow); Hyaline Casts,Urine 7 /LPF; Mucus,Urine 3+ /HPF; Protein,Urine <15 mg/dL mg/dL (Negative)
== END 2019-02-17 18:35 | disposition home or self-care (01) ==
LOC: ED 13:56
DX: S39.012A Strain of muscle, fascia and tendon of lower back, initial encounter (principal); M54.32 Sciatica, left side; M54.42 Lumbago with sciatica, left side; N30.00 Acute cystitis without hematuria; I10 Essential (primary) hypertension; J45.909 Unspecified asthma, uncomplicated; Z86.73 Personal history of transient ischemic attack (TIA), and cerebral infarction without residual deficits; Z98.51 Tubal ligation status; Z87.891 Personal history of nicotine dependence; Z79.899 Other long term (current) drug therapy; Z88.6 Allergy status to analgesic agent; Z88.1 Allergy status to other antibiotic agents; X58.XXXA Exposure to other specified factors, initial encounter; Y93.89 Activity, other specified; Y92.89 Other specified places as the place of occurrence of the external cause; Y99.8 Other external cause status
CPT/HCPCS: 36415; 80048; 80076; 81001; 82550; 84703; 85025; 99283

== ENCOUNTER 2019-03-25 08:18 | Inpatient (IN) | payer OTHER ==
[2019-03-25] MEDS ORDERED: ASPIRIN PO ONE (08:34)
[2019-03-25 08:49] LABS: Basophils % (Auto) 0.7 % (0.0-1.8); Eosinophils # (Auto) 0.1 K/mm3 (0.0-0.4); Eosinophils % (Auto) 1.9 % (0.0-4.3); Hematocrit 37.9 % (30.3-42.9); Hemoglobin 12.9 gm/dl (10.1-14.3); Lymphocytes # (Auto) 2.4 K/mm3 (1.2-5.4); Lymphocytes % (Auto) 45.9 % (13.4-35.0); Mean Corpuscular HGB Conc 34 % (30-34); Mean Corpuscular Volume 85 fl (79-97); Monocytes # (Auto) 0.4 K/mm3 (0.0-0.8); Monocytes % (Auto) 7.1 % (0.0-7.3); Platelet Count 316 K/mm3 (140-440); Red Blood Count 4.47 M/mm3 (3.65-5.03); Red Cell Distribution Width 13.7 % (13.2-15.2)
[2019-03-25 09:06] LABS: BUN/Creatinine Ratio 11; Blood Urea Nitrogen 9 mg/dL (7-17); Calcium 8.6 mg/dL (8.4-10.2); Hemolysis Index 34
--- NOTE | 2019-03-25 09:11 | XRay Report ---
CHEST TWO VIEWS: 03/25/19 08:18:00 CLINICAL: Chest pain. COMPARISON: 05/08/17 FINDINGS: Normal heart and pulmonary vasculature. The lungs are normally expanded and clear.The bones and soft tissues are unremarkable. IMPRESSION: Normal chest.
[2019-03-25] MEDS ORDERED: DUONEB *Not for PRN Use IH ONE (09:18)
[2019-03-25 09:46] LABS: Creatine Kinase MB 2.1 ng/mL (0.0-4.0)
[2019-03-25 09:47] LABS: Alanine Aminotransferase 18 units/L (7-56); Albumin 3.9 g/dL (3.9-5); Bilirubin,Direct < 0.2 mg/dL (0-0.2)
[2019-03-25] MEDS ORDERED: MAGNESIUM SULFATE 2GM/50ML 2 GM/50 ML BAG IV ONE (09:50)
--- NOTE | 2019-03-25 09:50 | Emergency Department Report ---
ED Chest Pain HPI - General Chief Complaint: Chest Pain Stated Complaint: CHEST PAIN Time Seen by Provider: 03/25/19 08:54 Source: patient Mode of arrival: Ambulatory Limitations: No Limitations - History of Present Illness Initial Comments: This is a poorly communicative 38-year-old female who presents to the emergency department for midsternal chest pain since last night. She was found to be hypertensive in triage. She denies pleuritic pain. She says her left leg hurts. She does not complain of nausea vomiting sweating or dizziness. However, she is not providing a lot of historical information. She was noted to be a bit tachypneic in triage. She did not complain of shortness of breath knee. She gives somewhat conflicting information about being admitted here for 1 week for chest pain. As far as I determine she was actually admitted for an exacerbation of asthma as the discharge summary indicates: 36-year-old woman with a previous history of asthma in childhood. He presented with a few days of worsening shortness of breath and wheezing. She had not been taking any medications she will have been in remission with regards asthma for many years. She was found to be some accessory muscles, and had respiratory failure, therefore she was treated with noninvasive rescue BiPAP, she was weaned to supplemental oxygen. She was treated with steroids antibiotics and aggressive nebulizer treatment. She clinically improves, she was weaned off steroids, exercise testing did not provoke any further wheezing, she was weaned off supplemental oxygen. She clinically improved, sent home on a steroid taper along with necessary inhalers. Discharge diagnoses Acute exacerbation of asthma Acute respiratory failure HTN I suspect this patient is noncompliant with her blood pressure medicine. The patient has a history of previous stroke and right-sided weakness. The patient primarily complains of problems with her asthma upon my encounter. Complaint: chest pain Onset: during rest Pain Location: substernal Pain Radiation: none Severity: moderate Quality: heaviness Consistency: intermittent Improves With: nothing Worsens With: nothing re: denies: nausea, vomting, diaphoresis, dyspnea Other Symptoms: denies: cough, fever, syncope Treatments Prior to Arrival: none Aspirin use within the Past 7 Days: (0) No - Related Data On Oral Contraceptives: No Previous Rx's Medication Instructions Recorded Last Taken Type Pregabalin [Lyrica] 25 mg PO BID #60 capsule 09/03/16 09/11/17 Rx ALBUTEROL Inhaler (OR & NICU) 2 puff IH QID PRN #1 inhalation 05/11/17 1 Day Ago Rx [ProAir HFA Inhaler] ~09/10/17 ALBUTEROL NEB's [Proventil 0.083% 2.5 mg IH Q4HRT PRN #120 nebu 05/11/17 09/11/17 Rx NEBS] Butalb/Acetamin/Caff 50-325-40 2 tab PO Q4H PRN #14 tablet 05/11/17 09/11/17 Rx [Fioricet 50-325-40] Fluticasone/Salmeterol [Advair 1 puff IH BID #1 disk.w.dev 05/11/17 09/11/17 Rx Diskus 250-50 mcg] Losartan [Cozaar] 100 mg PO QDAY #60 tablet 05/11/17 09/11/17 Rx Montelukast [Singulair] 10 mg PO QPM #30 tablet 05/11/17 Unknown Rx Cyclobenzaprine [Flexeril] 10 mg PO QHS PRN #10 tablet 02/17/19 Unknown Rx Nitrofurantoin Monohyd/M-Cryst 100 mg PO BID 5 Days #10 capsule 02/17/19 Unknown Rx [Macrobid 100 mg Capsule] Prednisone [predniSONE 10 mg 10 mg PO .TAPER #1 tab.ds.pk 02/17/19 Unknown Rx (6-Day Pack, 21 Tabs)] Allergies Allergy/AdvReac Type Severity Reaction Status Date / Time ibuprofen Allergy Angioedema Verified 03/25/19 08:19 morphine Allergy Angioedema Verified 03/25/19 08:19 acetaminophen [From Percocet] AdvReac Unknown Verified 03/25/19 08:19 oxycodone HCl [From Percocet] AdvReac Unknown Verified 03/25/19 08:19 Heart Score - HEART Score History: Slightly suspicious EKG: Non-specific Age: < 45 Risk factors: 1-2 risk factors Troponin: < normal limit HEART Score: 2 - Critical Actions Critical Actions: 0-3 pts:0.9-1.7%risk of adverse cardiac event.Candidate for discharge ED Review of Systems ROS: Stated complaint: CHEST PAIN Other details as noted in HPI Comment: Unobtainable due to pts medical conditions (patient is poorly communicative but negative on attempted systems reviewed) ED Past Medical Hx - Past Medical History Hx Hypertension: Yes Hx CVA: Yes (right side weakness.) Hx Asthma: Yes - Surgical History Additional Surgical History: tubal ligation/ csection - Social History Smoking Status: Former Smoker Substance Use Type: None - Medications Home Medications: Home Medications Medication Instructions Recorded Confirmed Last Taken Type Pregabalin [Lyrica] 25 mg PO BID #60 capsule 09/03/16 09/11/17 09/11/17 Rx ALBUTEROL Inhaler (OR & NICU) 2 puff IH QID PRN #1 inhalation 05/11/17 09/11/17 1 Day Ago Rx [ProAir HFA Inhaler] ~09/10/17 ALBUTEROL NEB's [Proventil 0.083% 2.5 mg IH Q4HRT PRN #120 nebu 05/11/17 1 11/11/16 09/11/17 Rx NEBS] Butalb/Acetamin/Caff 50-325-40 2 tab PO Q4H PRN #14 tablet 05/11/17 09/11/17 09/11/17 Rx [Fioricet 50-325-40] Fluticasone/Salmeterol [Advair 1 puff IH BID #1 disk.w.dev 05/11/17 09/11/17 09/11/17 Rx Diskus 250-50 mcg] Losartan [Cozaar] 100 mg PO QDAY #60 tablet 05/11/17 09/11/17 09/11/17 Rx Montelukast [Singulair] 10 mg PO QPM #30 tablet 05/11/17 09/11/17 Unknown Rx Cyclobenzaprine [Flexeril] 10 mg PO QHS PRN #10 tablet 02/17/19 Unknown Rx Nitrofurantoin Monohyd/M-Cryst 100 mg PO BID 5 Days #10 capsule 02/17/19 Unknown Rx [Macrobid 100 mg Capsule] Prednisone [predniSONE 10 mg 10 mg PO .TAPER #1 tab.ds.pk 02/17/19 Unknown Rx (6-Day Pack, 21 Tabs)] ED Physical Exam - General Limitations: No Limitations General appearance: alert, in no apparent distress - Head Head exam: Present: atraumatic, normocephalic - Eye Eye exam: Present: normal appearance - ENT ENT exam: Present: mucous membranes moist - Neck Neck exam: Present: normal inspection - Respiratory Respiratory exam: Present: normal lung sounds bilaterally. Absent: respiratory distress - Cardiovascular Cardiovascular Exam: Present: regular rate, normal rhythm. Absent: systolic murmur, diastolic murmur, rubs, gallop - GI/Abdominal GI/Abdominal exam: Present: soft, normal bowel sounds. Absent: distended, tenderness, guarding, rebound - Extremities Exam Extremities exam: Present: normal inspection, normal capillary refill. Absent: pedal edema, joint swelling, calf tenderness - Back Exam Back exam: Present: normal inspection - Neurological Exam Neurological exam: Present: alert, oriented X3. Absent: CN II-XII intact (question facial asymmetry), motor sensory deficit (mild right hemiparesis) - Psychiatric Psychiatric exam: Present: normal affect, normal mood - Skin Skin exam: Present: warm, dry, intact, normal color. Absent: rash ED Course Vital Signs 03/25/19 03/25/19 03/25/19 08:34 09:07 09:18 Temperature 97.5 F L Pulse Rate 74 66 Pulse Rate [ Anterior Bilateral Throughout] Respiratory 16 20 20 Rate Respiratory Rate [Anterior Bilateral Throughout] Blood Pressure Blood Pressure 160/109 [Left] O2 Sat by Pulse 100 Oximetry 03/25/19 03/25/19 03/25/19 09:27 09:30 09:43 Temperature Pulse Rate Pulse Rate [ 72 80 Anterior Bilateral Throughout] Respiratory Rate Respiratory 24 20 Rate [Anterior Bilateral Throughout] Blood Pressure 118/97 Blood Pressure [Left] O2 Sat by Pulse 100 Oximetry 03/25/19 10:00 Temperature Pulse Rate Pulse Rate [ Anterior Bilateral Throughout] Respiratory Rate Respiratory Rate [Anterior Bilateral Throughout] Blood Pressure 118/97 Blood Pressure [Left] O2 Sat by Pulse 95 Oximetry - Reevaluation(s) Reevaluation #1: Patient is given aspirin as well as nitro paste. She will be admitted to the hospitalist service for Dr. Elena. I decided to do a CT of her head as she has a history of repair Steven is poorly communicative. Her urine is positive for cocaine and marijuana. 03/25/19 12:16 ED Medical Decision Making - Lab Data Result diagrams: 03/25/19 08:38 03/25/19 08:38 Laboratory Results - last 24 hr 03/25/19 03/25/19 03/25/19 08:30 08:38 08:38 WBC 5.3 RBC 4.47 Hgb 12.9 Hct 37.9 MCV 85 MCH 29 MCHC 34 RDW 13.7 Plt Count 316 Lymph % (Auto) 45.9 H [place] % (Auto) 7.1 Eos % (Auto) 1.9 Baso % (Auto) 0.7 Lymph # 2.4 [place] # 0.4 Eos # 0.1 Baso # 0.0 Seg Neutrophils % 44.4 Seg Neutrophils # 2.4 Sodium 135 L Potassium 4.0 Chloride 99.9 Carbon Dioxide 19 L Anion Gap 20 BUN 9 Creatinine 0.8 Estimated GFR > 60 BUN/Creatinine Ratio 11 Glucose 96 Calcium 8.6 Magnesium 1.60 L Total Bilirubin 0.30 Direct Bilirubin < 0.2 Indirect Bilirubin 0.1 AST 22 ALT 18 Alkaline Phosphatase 54 Total Creatine Kinase 130 CK-MB (CK-2) 2.1 CK-MB (CK-2) Rel Index 1.6 Troponin T < 0.010 NT-Pro-B Natriuret Pep 124.2 Total Protein 7.0 Albumin 3.9 Albumin/Globulin Ratio 1.3 Laboratory Results - last 24 hr 03/25/19 03/25/19 03/25/19 08:30 08:38 08:38 WBC 5.3 RBC 4.47 Hgb 12.9 Hct 37.9 MCV 85 MCH 29 MCHC 34 RDW 13.7 Plt Count 316 Lymph % (Auto) 45.9 H [place] % (Auto) 7.1 Eos % (Auto) 1.9 Baso % (Auto) 0.7 Lymph # 2.4 [place] # 0.4 Eos # 0.1 Baso # 0.0 Seg Neutrophils % 44.4 Seg Neutrophils # 2.4 PT INR APTT D-Dimer Sodium 135 L Potassium 4.0 Chloride 99.9 Carbon Dioxide 19 L Anion Gap 20 BUN 9 Creatinine 0.8 Estimated GFR > 60 BUN/Creatinine Ratio 11 Glucose 96 Calcium 8.6 Magnesium 1.60 L Total Bilirubin 0.30 Direct Bilirubin < 0.2 Indirect Bilirubin 0.1 AST 22 ALT 18 Alkaline Phosphatase 54 Total Creatine Kinase 130 CK-MB (CK-2) 2.1 CK-MB (CK-2) Rel Index 1.6 Troponin T < 0.010 NT-Pro-B Natriuret Pep 124.2 Total Protein 7.0 Albumin 3.9 Albumin/Globulin Ratio 1.3 Urine Color Urine Turbidity Urine pH Ur Specific [place] Urine Protein Urine Glucose (UA) Urine Ketones Urine Blood Urine Nitrite Urine Bilirubin Urine Urobilinogen Ur Leukocyte Esterase Urine WBC (Auto) Urine RBC (Auto) U Epithel Cells (Auto) Urine Mucus Urine Yeast (Budding) Urine HCG, Qual Urine Opiates Screen Urine Methadone Screen Ur Barbiturates Screen Ur Phencyclidine Scrn Ur Amphetamines Screen U Benzodiazepines Scrn Urine Cocaine Screen U Marijuana (THC) Screen Drugs of Abuse Note 03/25/19 03/25/19 03/25/19 09:33 09:37 09:37 WBC RBC Hgb Hct MCV MCH MCHC RDW Plt Count Lymph % (Auto) [place] % (Auto) Eos % (Auto) Baso % (Auto) Lymph # [place] # Eos # Baso # Seg Neutrophils % Seg Neutrophils # PT 13.4 INR 0.96 APTT 26.9 D-Dimer 93.2 Sodium Potassium Chloride Carbon Dioxide Anion Gap BUN Creatinine Estimated GFR BUN/Creatinine Ratio Glucose Calcium Magnesium Total Bilirubin Direct Bilirubin Indirect Bilirubin AST ALT Alkaline Phosphatase Total Creatine Kinase CK-MB (CK-2) CK-MB (CK-2) Rel Index Troponin T NT-Pro-B Natriuret Pep Total Protein Albumin Albumin/Globulin Ratio Urine Color Renae Urine Turbidity Slightly-cloudy Urine pH 7.0 Ur Specific [place] 1.020 Urine Protein 30 mg/dl Urine Glucose (UA) Neg Urine Ketones Neg Urine Blood Neg Urine Nitrite Neg Urine Bilirubin Neg Urine Urobilinogen 2.0 Ur Leukocyte Esterase Tr Urine WBC (Auto) 14.0 H Urine RBC (Auto) 5.0 U Epithel Cells (Auto) 14.0 H Urine Mucus 1+ Urine Yeast (Budding) Few Urine HCG, Qual Negative Urine Opiates Screen Presumptive negative Urine Methadone Screen Presumptive negative Ur Barbiturates Screen Presumptive negative Ur Phencyclidine Scrn Presumptive negative Ur Amphetamines Screen Presumptive negative U Benzodiazepines Scrn Presumptive negative Urine Cocaine Screen Presumptive positive U Marijuana (THC) Screen Presumptive positive Drugs of Abuse Note Disclamer - EKG Data -: EKG Interpreted by [place] EKG shows normal: sinus rhythm, axis, intervals, QRS complexes Rate: normal - EKG Data Interpretation: no acute changes, nonspecific ST-T wave ludivina, other (1 PVC) - Radiology Data Radiology results: report reviewed (chest x-ray a CT of the head no acute process no old hypodensity) Critical care attestation.: If time is entered above; I have spent that time in minutes in the direct care of this critically ill patient, excluding procedure time. ED Disposition Clinical Impression: Poorly-controlled hypertension, Cocaine abuse Chest pain Qualifiers: Chest pain type: unspecified Qualified Code(s): R07.9 - Chest pain, unspecified Disposition: 09 OP ADMIT IP TO THIS HOSP Is pt being admited?: Yes Does the pt Need Aspirin: Yes Condition: Stable Instructions: Chest Pain (ED) Time of Disposition: 13:30
[2019-03-25 10:12] LABS: INR 0.96 (0.87-1.13)
[2019-03-25 10:13] LABS: Partial Thromboplastin Time 26.9 Sec. (24.2-36.6)
[2019-03-25 10:21] LABS: Bilirubin,Urine NEG (Negative); Blood,Urine NEG (Negative); Color,Urine Amber (Yellow); Mucus,Urine 1+ /HPF
[2019-03-25 10:24] LABS: HCG Qualitative,Urine Negative (Negative)
[2019-03-25 10:26] LABS: Amphetamine Screen,Urine PRESUMPTIVE NEGATIVE; Benzodiazepines Screen,Urine PRESUMPTIVE NEGATIVE; Methadone Screen,Urine PRESUMPTIVE NEGATIVE; Opiate Screen,Urine PRESUMPTIVE NEGATIVE
[2019-03-25 10:49] LABS: Cannabinoid Screen,Urine PRESUMPTIVE POSITIVE; Cocaine Screen,Urine PRESUMPTIVE POSITIVE
[2019-03-25] MEDS ORDERED: ATIVAN IV ONE (11:44)
[2019-03-25] MEDS ORDERED: SOLU-Medrol IV ONE (12:16)
--- NOTE | 2019-03-25 12:42 | Cat Scan Report ---
CT HEAD WITHOUT CONTRAST: 03/25/19 CLINICAL: Right hemiparesis and history of stroke. TECHNIQUE: 2.5-mm noncontrast scans. COMPARISON:09/01/16 FINDINGS: The ventricles and sulci are normal for age. No suspicious hypodensity. No mass or mass effect. No hemorrhage, edema or extra-axial collection. The sinuses are clear. Normal orbits and soft tissues. The calvarium and skull base are intact. IMPRESSION: Normal study. No acute change.
[2019-03-25] MEDS: DILAUDID IV PRN (20:32)
[2019-03-25] MEDS ORDERED: TYLENOL PO PRN (23:40)
[2019-03-25] MEDS ORDERED: ZOFRAN IV PRN (23:40)
[2019-03-25] MEDS ORDERED: MORPHINE IV PRN (23:40)
[2019-03-25] MEDS ORDERED: PERCOCET 5/325 PO PRN (23:40)
[2019-03-25] MEDS ORDERED: SODIUM CHLORIDE FLUSH SYRINGE 10 ML IV PRN (23:40)
--- NOTE | 2019-03-25 23:40 | Event Note ---
Date: 03/25/19 See H/p inreports Chest pain r/o CA
[2019-03-25] MEDS ORDERED: PROVENTIL IH PRN (23:48)
--- NOTE | 2019-03-26 00:05 | History and Physical Report ---
CHIEF COMPLAINT: Left-sided chest pain since last night. HISTORY OF PRESENT ILLNESS: A 38-year-old female with history of asthma and peripheral neuropathy, presents with left-sided chest pain since last night. The patient also has a history of hypertension. Chest pain is about 8 on a scale of 1-10, intermittent in nature. No nausea, no vomiting, no sweating or dizziness. No shortness of breath. The patient has asthma since childhood. Chest pain is not pleuritic. No exacerbating or relieving factors. No recent travel. PAST MEDICAL HISTORY: Significant for hypertension, cerebrovascular accident, asthma. PAST SURGICAL HISTORY: Tubal ligation and . SOCIAL HISTORY: Former smoker. FAMILY HISTORY: Hypertension. CURRENT MEDICATIONS: Albuterol nebulizer treatments q.i.d. p.r.n., Lyrica 25 mg twice a day, Fioricet one tablet t.i.d. p.r.n., losartan 100 mg once a day, montelukast 10 mg once a day. REVIEW OF SYSTEMS: Significant for left-sided chest pain. Nonradiating. No shortness of breath. No wheezing, no symptoms of asthma. A 14-point review of systems is done, otherwise negative. PHYSICAL EXAMINATION: GENERAL: Young female, cooperative during examination. VITAL SIGNS: Blood pressure is 168/85, temperature is 98.4, pulse is 79, respirations are 16. HEENT: Unremarkable. Pupils equal and reactive. NECK: Supple, no lymphadenopathy, no thyromegaly. LUNGS: Clear to auscultation and percussion. Good air entry. CARDIOVASCULAR: S1, S2 heard. No gallop, no murmur, no rub. Apical impulse in left fifth intercostal space and midclavicular line. ABDOMEN: Soft and benign. No hepatosplenomegaly. No guarding, no rigidity. Hernial orifices were normal. EXTREMITIES: Good pedal pulses. No pedal edema. CENTRAL NERVOUS SYSTEM: Alert and oriented x 4, nonfocal exam. SKIN: Normal. LABORATORY DATA: EKG could not be found. EKG reordered. Chest x-ray is normal. No acute findings. Lab testing is included white count of 5300, H and H is 12.9 and 37.9, platelet count is 350,000. Sodium is 135, potassium is 4.0, chloride is 99.9, bicarbonate is 19, BUN and creatinine 9 and 0.8, magnesium is 1.6. ASSESSMENT AND PLAN: 1. Chest pain, rule out myocardial infarction, chest pain protocol. 2. Hypertension. Continue losartan. 3. Peripheral neuropathy. Continue Lyrica. 4. Urinary tract infection. The patient is started on IV Rocephin. 5. Deep thrombosis prophylaxis, Lovenox 40 mg subcutaneous daily and gastrointestinal prophylaxis. [facility]# [id number] VSM/NTS
[2019-03-26] MEDS: PEPCID IV SCH ×2 (02:28→09:56)
[2019-03-26 05:02] LABS: Basophils % (Auto) 0.2 % (0.0-1.8); Hematocrit 36.1 % (30.3-42.9); Hemoglobin 12.1 gm/dl (10.1-14.3); Lymphocytes % (Auto) 15.8 % (13.4-35.0); Mean Corpuscular HGB Conc 33 % (30-34); Mean Corpuscular Volume 86 fl (79-97); Monocytes # (Auto) 0.4 K/mm3 (0.0-0.8); Monocytes % (Auto) 5.9 % (0.0-7.3); Platelet Count 259 K/mm3 (140-440); Red Blood Count 4.18 M/mm3 (3.65-5.03); Red Cell Distribution Width 13.9 % (13.2-15.2)
[2019-03-26 05:13] LABS: Alanine Aminotransferase 15 units/L (7-56); Albumin 3.7 g/dL (3.9-5); BUN/Creatinine Ratio 20; Blood Urea Nitrogen 16 mg/dL (7-17); Hemolysis Index 3
[2019-03-26] MEDS ORDERED: LEXISCAN IV ONE ×2 (08:14→08:25)
[2019-03-26] MEDS: DILAUDID IV PRN (08:19)
[2019-03-26] MEDS ORDERED: ROCEPHIN/NS 1 GM/50 ML 1 GM/50 ML BAG IV SCH (10:00)
[2019-03-26] MEDS ORDERED: SODIUM CHLORIDE FLUSH SYRINGE 10 ML IV SCH (10:00)
[2019-03-26] MEDS ORDERED: COZAAR PO SCH (10:00)
[2019-03-26] MEDS: DUONEB *Not for PRN Use IH SCH ×4 (10:39→19:50)
[2019-03-26] MEDS: SOLU-Medrol IV SCH ×2 (10:51→15:31)
[2019-03-26 12:15] VITALS: BP 165/106
--- NOTE | 2019-03-26 14:01 | Progress Note ---
Assessment and Plan Assessment and plan: 38-year-old -Monegas[place] female with no significant past medical history presented to the emergency department complaining of chest pain and shortness of breath. Chest pain - Cardiac enzymes are negative - Cardiology consult that stress test and recommended echo - Patient refused echo Acute respiratory failure secondary to COPD/asthma exacerbation - Agent is on IV Solu-Medrol, nebulizer treatment, oxygen support UTI - on antibiotic Polysubstance abuse - UDS was positive for cocaine and marijuana - Patient denied using cocaine and getting angry DVT prophylaxis Disposition - Continue inpatient care, possible discharge tomorrow once asthma/COPD exacerbation is getting better History Interval history: Patient was seen and evaluated this morning, patient is complaining shortness of breath and chest pain. Hospitalist Physical - Physical exam Narrative exam: Not in cardiopulmonary distress. The patient obese Vital signs as documented. Head exam is unremarkable. No scleral icterus . Neck is without jugular venous distension, thyromegaly, or carotid bruits. Lungs wheezing all over the chest Cardiac exam reveals regular rate and Rhythm. Abdominal exam reveals normal bowel sounds, no masses, no organomegaly and no aortic enlargement. Extremities are nonedematous and both femoral and pedal pulses are normal. 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 No focal weakness. - Constitutional Vitals: Temp Pulse Resp BP Pulse Ox 98.1 F 90 18 165/106 95 03/26/19 10:54 03/26/19 10:43 03/26/19 10:54 03/26/19 10:54 03/26/19 05:52 Results - Labs CBC & Chem 7: 03/26/19 04:04 03/26/19 04:04 Labs: Laboratory Last Values WBC 6.5 K/mm3 (4.5-11.0) 03/26/19 04:04 RBC 4.18 M/mm3 (3.65-5.03) 03/26/19 04:04 Hgb 12.1 gm/dl (10.1-14.3) 03/26/19 04:04 Hct 36.1 % (30.3-42.9) 03/26/19 04:04 MCV 86 fl (79-97) 03/26/19 04:04 MCH 29 pg (28-32) 03/26/19 04:04 MCHC 33 % (30-34) 03/26/19 04:04 RDW 13.9 % (13.2-15.2) 03/26/19 04:04 Plt Count 259 K/mm3 (140-440) 03/26/19 04:04 Lymph % (Auto) 15.8 % (13.4-35.0) 03/26/19 04:04 [place] % (Auto) 5.9 % (0.0-7.3) 03/26/19 04:04 Eos % (Auto) 0.0 % (0.0-4.3) 03/26/19 04:04 Baso % (Auto) 0.2 % (0.0-1.8) 03/26/19 04:04 Lymph # 1.0 K/mm3 (1.2-5.4) L 03/26/19 04:04 [place] # 0.4 K/mm3 (0.0-0.8) 03/26/19 04:04 Eos # 0.0 K/mm3 (0.0-0.4) 03/26/19 04:04 Baso # 0.0 K/mm3 (0.0-0.1) 03/26/19 04:04 Seg Neutrophils % 78.1 % (40.0-70.0) H 03/26/19 04:04 Seg Neutrophils # 5.1 K/mm3 (1.8-7.7) 03/26/19 04:04 PT 13.4 Sec. (12.2-14.9) 03/25/19 09:33 INR 0.96 (0.87-1.13) 03/25/19 09:33 APTT 26.9 Sec. (24.2-36.6) 03/25/19 09:33 93.2 ng/mlDDU (0-234) 03/25/19 09:33 Sodium 138 mmol/L (137-145) 03/26/19 04:04 Potassium 4.5 mmol/L (3.6-5.0) 03/26/19 04:04 Chloride 104.6 mmol/L (98-107) 03/26/19 04:04 Carbon Dioxide 21 mmol/L (22-30) L 03/26/19 04:04 17 mmol/L 03/26/19 04:04 BUN 16 mg/dL (7-17) 03/26/19 04:04 0.8 mg/dL (0.7-1.2) 03/26/19 04:04 Estimated GFR > 60 ml/min 03/26/19 04:04 20 % 03/26/19 04:04 Glucose 117 mg/dL (65-100) H 03/26/19 04:04 5.4 % (4-6) 03/25/19 23:49 Calcium 9.0 mg/dL (8.4-10.2) 03/26/19 04:04 Magnesium 1.60 mg/dL (1.7-2.3) L 03/25/19 08:30 < 0.20 mg/dL (0.1-1.2) 03/26/19 04:04 < 0.2 mg/dL (0-0.2) 03/25/19 08:30 0.1 mg/dL 03/25/19 08:30 AST 12 units/L (5-40) 03/26/19 04:04 ALT 15 units/L (7-56) 03/26/19 04:04 52 units/L (35-129) 03/26/19 04:04 130 units/L (30-135) 03/25/19 08:30 CK-MB (CK-2) 2.1 ng/mL (0.0-4.0) 03/25/19 08:30 CK-MB (CK-2) Rel Index 1.6 (0-4) 03/25/19 08:30 < 0.010 ng/mL (0.00-0.029) 03/26/19 04:04 NT-Pro-B Natriuret Pep 124.2 pg/mL (0-450) 03/25/19 08:30 6.5 g/dL (6.3-8.2) 03/26/19 04:04 3.7 g/dL (3.9-5) L 03/26/19 04:04 1.3 % 03/26/19 04:04 Renae (Yellow) 03/25/19 09:37 Slightly-cloudy (Clear) 03/25/19 09:37 7.0 (5.0-7.0) 03/25/19 09:37 Ur Specific [place] 1.020 (1.003-1.030) 03/25/19 09:37 30 mg/dl mg/dL (Negative) 03/25/19 09:37 Neg mg/dL (Negative) 03/25/19 09:37 Neg mg/dL (Negative) 03/25/19 09:37 Neg (Negative) 03/25/19 09:37 Neg (Negative) 03/25/19 09:37 Neg (Negative) 03/25/19 09:37 2.0 mg/dL (<2.0) 03/25/19 09:37 Ur Leukocyte Esterase Tr (Negative) 03/25/19 09:37 14.0 /HPF (0.0-6.0) H 03/25/19 09:37 5.0 /HPF (0.0-6.0) 03/25/19 09:37 U Epithel Cells (Auto) 14.0 /HPF (0-13.0) H 03/25/19 09:37 1+ /HPF 03/25/19 09:37 Few /HPF 03/25/19 09:37 Urine HCG, Qual Negative (Negative) 03/25/19 09:37 Presumptive negative 03/25/19 09:37 Presumptive negative 03/25/19 09:37 Ur Barbiturates Screen Presumptive negative 03/25/19 09:37 Ur Phencyclidine Scrn Presumptive negative 03/25/19 09:37 Ur Amphetamines Screen Presumptive negative 03/25/19 09:37 U Benzodiazepines Scrn Presumptive negative 03/25/19 09:37 Presumptive positive 03/25/19 09:37 U Marijuana (THC) Screen Presumptive positive 03/25/19 09:37 Disclamer 03/25/19 09:37 Active Medications - Current Medications Current Medications: Generic Name Dose Route Start Last Admin Trade Name Freq PRN Reason Stop Dose Admin Acetaminophen 650 mg 03/25/19 23:40 Tylenol PO Q4H PRN Pain MILD(1-3)/Fever >100.5/[place] Albuterol 2.5 mg 03/25/19 23:48 Proventil IH Q4HRT PRN Shortness Of Breath Albuterol/Ipratropium 1 ampul 03/26/19 10:15 03/26/19 10:39 Duoneb *Not For Prn Use* IH 1 ampul Q6HRT DAVID Administration Famotidine 20 mg 03/25/19 23:45 03/26/19 09:56 Pepcid IV 20 mg BID DAVID Administration Ceftriaxone Sodium 1 gm in 50 mls @ 100 mls/hr 03/26/19 10:00 03/26/19 09:56 Rocephin/Ns 1 Gm/50 Ml IV 100 mls/hr Q24HR DAVID Administration Protocol Losartan Potassium 100 mg 03/26/19 10:00 03/26/19 09:55 Cozaar PO 100 mg QDAY DAVID Administration Methylprednisolone Sodium Succinate 80 mg 03/26/19 10:00 03/26/19 10:51 Solu-Medrol IV 80 mg Q8HR DAVID Administration Montelukast Sodium 10 mg 03/26/19 22:00 Singulair PO QHS DAVID Ondansetron HCl 4 mg 03/25/19 23:40 Zofran IV Q8H PRN Nausea And Vomiting Sodium Chloride 10 ml 03/26/19 10:00 03/26/19 09:56 Sodium Chloride Flush Syringe 10 Ml IV 10 ml BID DAVID Administration Sodium Chloride 10 ml 03/25/19 23:40 Sodium Chloride Flush Syringe 10 Ml IV PRN PRN LINE FLUSH Nutrition/Malnutrition Assess - Dietary Evaluation Nutrition/Malnutrition Findings: Nutrition Notes Start: 03/26/19 09:22 Freq: Status: Active Protocol: Document 03/26/19 09:22 LP (Rec: 03/26/19 09:23 LP [id number]) Nutrition Notes Need for Assessment generated from: sweet pickled fruit maker Initial or Follow up Brief Note Current Diagnosis Hypertension,Stroke Other Pertinent Diagnosis UTI, Cocaine abuse Current Diet Cardiac Subjective/Other Information Screen for MST. 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 Food allergies noted. Apple, banana, kiwi. No immediate nutrition needs at this time. Nutrition Intervention Revisit per MD consult or patient Sign Off request:
[2019-03-26] MEDS ORDERED: SINGULAIR PO SCH (22:00)
== END 2019-03-26 20:50 | disposition left against medical advice (07) | DRG 189 ==
LOC: ED 08:18 → 4A 13:31
PROVIDERS: ADMIT Internal Medicine; ATTEND Internal Medicine
DX: J96.00 Acute respiratory failure, unspecified whether with hypoxia or hypercapnia (principal); N39.0 Urinary tract infection, site not specified; J45.901 Unspecified asthma with (acute) exacerbation; I10 Essential (primary) hypertension; R07.9 Chest pain, unspecified; F14.10 Cocaine abuse, uncomplicated; F12.10 Cannabis abuse, uncomplicated; Z53.21 Procedure and treatment not carried out due to patient leaving prior to being seen by health care provider; F17.210 Nicotine dependence, cigarettes, uncomplicated; Z71.6 Tobacco abuse counseling; Z79.51 Long term (current) use of inhaled steroids; Z79.899 Other long term (current) drug therapy; Z88.5 Allergy status to narcotic agent; Z88.8 Allergy status to other drugs, medicaments and biological substances; Z98.51 Tubal ligation status
CPT/HCPCS: 36415; 70450; 71046; 80048; 80053; 80076; 80307; 81001; 81025; 82550; 82553; 83036; 83735; 83880; 84484; 85025; 85379; 85610; 85730; 93005; 93010; 93306; 94640; 96365; 96375; 99406; G0378; J0696; J1170; J2060; J2785; J2930; J3475

== ENCOUNTER 2019-09-29 08:10 | Emergency (ER) | payer SELFPAY ==
[2019-09-29] MEDS ORDERED: LORazepam 2 MG/ML VIAL IV ONE (08:17)
--- NOTE | 2019-09-29 08:41 | Cat Scan Report ---
CT head without contrast INDICATION : neuro deficits <6hrs or sx present upon awakening. TECHNIQUE: Axial imaging performed from the skull apex through the skull base without the use of con trast. All CT scans at this location are performed using CT dose reduction for ALARA by means of aut omated exposure control. COMPARISON: CT head from 03/25/2019 FINDINGS: Parenchyma: No acute intracranial hemorrhage or parenchymal abnormality. Ventricles: Ventricles are normal in size and appear symmetric. Soft tissues: Soft tissues including the orbits appear normal. Bones: No acute osseous abnormality. Sinuses: Sinuses and mastoid air cells are clear. IMPRESSION: No acute abnormality. COMMUNICATION: Time of Communication (CERTIFIED ORTHOTIST/CDT): 7:35 AM Licensed Practitioner Receiving Report: Dr. Maxwell Signer Name: Victorino Shrestha MD Signed: 09/29/2019 8:36 AM Workstation Name: [id number]
--- NOTE | 2019-09-29 08:59 | Emergency Department Report ---
ED Neuro Deficit HPI - General Stated Complaint: POSS CVA Time Seen by Provider: 09/29/19 08:21 - History of Present Illness Initial Comments: This is a 39-year-old female with symptoms since some time yesterday. EMS activated a code stroke alert. At the time of the patient's arrival she had what appeared to be voluntary twitching of the left side of her face and her upper extremity. She was hyperventilating and making somewhat at the snoring sound. Not withstanding, she was awake and could follow commands. When asked if she had been diagnosed with previous seizure disorder, she answered to the negative. She is giving limited history at the time of her arrival. In consideration of her hyperventilation and apparent panic, she is given 1 mg of Ativan. According to the charge nurse, the family was called. The family stated that they were not coming to the hospital I am told because the patient's symptoms are recurrent and presumably not diagnosed as a specific medical condition. In any case, the patient is said to have a history of prior stroke. Further details relating to the patient's past are unknown at this time. -: days(s) Location: left face, left arm, left leg Presenting Symptoms: Present: Unable to Speak Clearly History of same: Yes (perhaps, limited history available) Place: home Severity: Unable to Determine Quality: other Improves With: none Worsens With: none On Anticoagulants: No Associated Symptoms: other (hyperventilating) - Related Data Home Medications: Home Medications Medication Instructions Recorded Confirmed Last Taken No Known Home Medications [No 03/25/19 03/25/19 Unknown Reported Home Medications] Allergies/Adverse Reactions: Allergies Allergy/AdvReac Type Severity Reaction Status Date / Time ibuprofen Allergy Angioedema Verified 03/25/19 08:19 morphine Allergy Angioedema Verified 03/25/19 08:19 acetaminophen [From Percocet] AdvReac Unknown Verified 03/25/19 08:19 apple AdvReac Unknown Verified 03/26/19 09:24 banana AdvReac Unknown Verified 03/26/19 09:24 kiwi AdvReac Unknown Verified 03/26/19 09:24 oxycodone HCl [From Percocet] AdvReac Unknown Verified 03/25/19 08:19 ED Review of Systems ROS: Stated complaint: POSS CVA Other details as noted in HPI Comment: Unobtainable due to pts medical conditions ED Past Medical Hx - Past Medical History Hx Hypertension: Yes Hx CVA: Yes (right side weakness.) Hx Asthma: Yes - Surgical History Additional Surgical History: tubal ligation/ csection - Social History Smoking Status: Former Smoker - Medications Home Medications: Home Medications Medication Instructions Recorded Confirmed Last Taken Type No Known Home Medications [No 03/25/19 03/25/19 Unknown History Reported Home Medications] ED Neuro Physical Exam - General Limitations: Physical Limitation, Other (noisy respirations but no stridor) General appearance: other (facial twitching) Suspected Stroke: No (appears unlikely) - Head Head exam: Present: atraumatic, normocephalic - Eye Eye exam: Present: normal appearance - ENT ENT exam: Present: mucous membranes moist - Neck Neck exam: Present: normal inspection. Absent: tenderness, meningismus - Respiratory Respiratory exam: Present: normal lung sounds bilaterally. Absent: respiratory distress - Cardiovascular Cardiovascular Exam: Present: regular rate, normal rhythm. Absent: systolic murmur, diastolic murmur, rubs, gallop - GI/Abdominal GI/Abdominal exam: Present: soft, normal bowel sounds. Absent: distended, tenderness, guarding, rebound, rigid - Neurological Exam Neurological exam: Present: other (exam is limited by the patient's twitching which appears to be [id number]) - NIHSS Assessment Interval: Baseline 1a. Level of Consciousness: alert/keenly responsive 1b. LOC Questions: answers both correctly 1c. LOC Commands: performs tasks correctly 2. Best Gaze: normal 3. Visual: no visual loss 4. Facial Palsy: normal symmetrical movement 5b. Motor Arm Right: no drift 5a. Motor Arm Left: no drift 6a. Motor Leg Left: no drift 6b. Motor Leg Right: no drift 7. Limb Ataxia: absent 8. Sensory: normal 9. Best Language: no aphasia 10. Dysarthria: normal 11. Extinction/Inattention: no abnormality Total Score: 0 Stroke Severity: No Stroke Symptoms - Psychiatric Psychiatric exam: Present: anxious - Skin Skin exam: Present: warm, dry, intact, normal color. Absent: rash ED Course Vital Signs 09/29/19 08:47 Temperature 98.2 F Pulse Rate 80 Respiratory 16 Rate Blood Pressure 115/80 O2 Sat by Pulse 100 Oximetry - Reevaluation(s) Reevaluation #1: Upon return from [place] a more formal NIH exam could be performed. The patient has a stroke score of 0. She tells me that she developed "pain of her entire left side since yesterday. She is moving both the left and the right side symmetrically. There is no sensory deficit. She acts with antalgia to movement of her arm and leg. Her noisy respirations have resolved after the Ativan. She has occasional facial twitching however. She is able to follow commands and answer questions although appears to be still very distracted. This is a patient with a stroke score of 0. Last known well time was yesterday. Thus far she is not suspected of stroke. Furthermore, she is not a TPA candidate. 09/29/19 09:00 Reevaluation #2: Review of prior records reveal a very similar presentation in 2016. The patient was admitted for a stroke workup. An MRI of the brain was entirely normal. 09/29/19 10:26 Reevaluation #3: On reexamination the patient remains neurologically intact with an NIH stroke score is 0. She is a bit lethargic from the Ativan. She will be observed further. She states that she thinks she will be able to go home. 09/29/19 10:34 Reevaluation #4: Patient fully ambulatory. Remains totally neurologically intact. Presentation somewhat consistent with conversion disorder. 09/29/19 13:13 - Lab Data Result diagrams: 09/29/19 08:18 09/29/19 08:18 Lab Results 09/29/19 09/29/19 09/29/19 Range/Units 08:18 08:18 08:18 WBC 4.9 (4.5-11.0) K/mm3 RBC 4.39 (3.65-5.03) M/mm3 Hgb 12.4 (10.1-14.3) gm/dl Hct 37.7 (30.3-42.9) % MCV 86 (79-97) fl MCH 28 (28-32) pg MCHC 33 (30-34) % RDW 14.0 (13.2-15.2) % Plt Count 273 (140-440) K/mm3 Lymph % (Auto) 33.7 (13.4-35.0) % Calvert % (Auto) 8.7 H (0.0-7.3) % Eos % (Auto) 2.7 (0.0-4.3) % Baso % (Auto) 0.6 (0.0-1.8) % Lymph # 1.6 (1.2-5.4) K/mm3 Calvert # 0.4 (0.0-0.8) K/mm3 Eos # 0.1 (0.0-0.4) K/mm3 Baso # 0.0 (0.0-0.1) K/mm3 Seg Neutrophils % 54.3 (40.0-70.0) % Seg Neutrophils # 2.6 (1.8-7.7) K/mm3 PT 11.2 L (12.2-14.9) Sec. INR 0.82 L (0.87-1.13) APTT 27.9 (24.2-36.6) Sec. Thrombin Time 15.6 (15.1-19.6) Sec. Sodium 138 (137-145) mmol/L Potassium 3.6 (3.6-5.0) mmol/L Chloride 96.3 L (98-107) mmol/L Carbon Dioxide 21 L (22-30) mmol/L Anion Gap 24 mmol/L BUN 26 H (7-17) mg/dL Creatinine 1.1 (0.7-1.2) mg/dL Estimated GFR > 60 ml/min BUN/Creatinine Ratio 24 % Glucose 122 H (65-100) mg/dL Lactic Acid (0.7-2.0) mmol/L Calcium 8.9 (8.4-10.2) mg/dL Total Bilirubin (0.1-1.2) mg/dL Direct Bilirubin (0-0.2) mg/dL Indirect Bilirubin mg/dL AST (5-40) units/L ALT (7-56) units/L Alkaline Phosphatase (35-129) units/L Ammonia (25-60) umol/L Total Creatine Kinase (30-135) units/L CK-MB (CK-2) (0.0-4.0) ng/mL CK-MB (CK-2) Rel Index (0-4) Troponin T < 0.010 (0.00-0.029) ng/mL Total Protein (6.3-8.2) g/dL Albumin (3.9-5) g/dL Albumin/Globulin Ratio % 09/29/19 09/29/19 09/29/19 Range/Units 08:28 08:28 08:28 WBC (4.5-11.0) K/mm3 RBC (3.65-5.03) M/mm3 Hgb (10.1-14.3) gm/dl Hct (30.3-42.9) % MCV (79-97) fl MCH (28-32) pg MCHC (30-34) % RDW (13.2-15.2) % Plt Count (140-440) K/mm3 Lymph % (Auto) (13.4-35.0) % Calvert % (Auto) (0.0-7.3) % Eos % (Auto) (0.0-4.3) % Baso % (Auto) (0.0-1.8) % Lymph # (1.2-5.4) K/mm3 Calvert # (0.0-0.8) K/mm3 Eos # (0.0-0.4) K/mm3 Baso # (0.0-0.1) K/mm3 Seg Neutrophils % (40.0-70.0) % Seg Neutrophils # (1.8-7.7) K/mm3 PT (12.2-14.9) Sec. INR (0.87-1.13) APTT (24.2-36.6) Sec. Thrombin Time (15.1-19.6) Sec. Sodium (137-145) mmol/L Potassium (3.6-5.0) mmol/L Chloride (98-107) mmol/L Carbon Dioxide (22-30) mmol/L Anion Gap mmol/L BUN (7-17) mg/dL Creatinine (0.7-1.2) mg/dL Estimated GFR ml/min BUN/Creatinine Ratio % Glucose (65-100) mg/dL Lactic Acid 1.70 (0.7-2.0) mmol/L Calcium (8.4-10.2) mg/dL Total Bilirubin < 0.20 (0.1-1.2) mg/dL Direct Bilirubin < 0.2 (0-0.2) mg/dL Indirect Bilirubin 0.0 mg/dL AST 20 (5-40) units/L ALT 24 (7-56) units/L Alkaline Phosphatase 49 (35-129) units/L Ammonia 29.0 (25-60) umol/L Total Creatine Kinase 103 (30-135) units/L CK-MB (CK-2) 1.7 (0.0-4.0) ng/mL CK-MB (CK-2) Rel Index 1.6 (0-4) Troponin T (0.00-0.029) ng/mL Total Protein 6.9 (6.3-8.2) g/dL Albumin 4.3 (3.9-5) g/dL Albumin/Globulin Ratio 1.7 % Laboratory Results - last 24 hr 09/29/19 09/29/19 09/29/19 08:18 08:18 08:18 WBC 4.9 RBC 4.39 Hgb 12.4 Hct 37.7 MCV 86 MCH 28 MCHC 33 RDW 14.0 Plt Count 273 Lymph % (Auto) 33.7 Calvert % (Auto) 8.7 H Eos % (Auto) 2.7 Baso % (Auto) 0.6 Lymph # 1.6 Calvert # 0.4 Eos # 0.1 Baso # 0.0 Seg Neutrophils % 54.3 Seg Neutrophils # 2.6 PT 11.2 L INR 0.82 L APTT 27.9 Thrombin Time 15.6 Sodium 138 Potassium 3.6 Chloride 96.3 L Carbon Dioxide 21 L Anion Gap 24 BUN 26 H Creatinine 1.1 Estimated GFR > 60 BUN/Creatinine Ratio 24 Glucose 122 H Lactic Acid Calcium 8.9 Total Bilirubin Direct Bilirubin Indirect Bilirubin AST ALT Alkaline Phosphatase Ammonia Total Creatine Kinase CK-MB (CK-2) CK-MB (CK-2) Rel Index Troponin T < 0.010 Total Protein Albumin Albumin/Globulin Ratio 09/29/19 09/29/19 09/29/19 08:28 08:28 08:28 WBC RBC Hgb Hct MCV MCH MCHC RDW Plt Count Lymph % (Auto) Calvert % (Auto) Eos % (Auto) Baso % (Auto) Lymph # Calvert # Eos # Baso # Seg Neutrophils % Seg Neutrophils # PT INR APTT Thrombin Time Sodium Potassium Chloride Carbon Dioxide Anion Gap BUN Creatinine Estimated GFR BUN/Creatinine Ratio Glucose Lactic Acid 1.70 Calcium Total Bilirubin < 0.20 Direct Bilirubin < 0.2 Indirect Bilirubin 0.0 AST 20 ALT 24 Alkaline Phosphatase 49 Ammonia 29.0 Total Creatine Kinase 103 CK-MB (CK-2) 1.7 CK-MB (CK-2) Rel Index 1.6 Troponin T Total Protein 6.9 Albumin 4.3 Albumin/Globulin Ratio 1.7 - EKG Data -: EKG Interpreted by Me EKG shows normal: sinus rhythm, axis, intervals, QRS complexes, ST-T waves Rate: normal, tachycardia, bradycardia Interpretation: no acute changes - Radiology Data Radiology results: report reviewed (CT the head was normal) Critical care attestation.: If time is entered above; I have spent that time in minutes in the direct care of this critically ill patient, excluding procedure time. ED Disposition Clinical Impression: Transient alteration of awareness Disposition: DC-01 TO HOME OR SELFCARE Is pt being admited?: No Does the pt Need Aspirin: No Condition: Stable Additional Instructions: Return any further problem. Follow-up with the primary care provider. If he do not have one, call [facility]. Referrals: PRIMARY CARE, [Primary Care Provider] - 3-5 Days [facility] [Provider Group] - 2-3 Days Time of Disposition: 13:14
[2019-09-29 09:34] LABS: BUN/Creatinine Ratio 24; Blood Urea Nitrogen 26 mg/dL (7-17); Calcium 8.9 mg/dL (8.4-10.2); Hemolysis Index 1
[2019-09-29 09:37] LABS: Creatine Kinase MB 1.7 ng/mL (0.0-4.0)
[2019-09-29 09:40] LABS: Alanine Aminotransferase 24 units/L (7-56); Albumin 4.3 g/dL (3.9-5); Bilirubin,Direct < 0.2 mg/dL (0-0.2)
[2019-09-29 09:46] LABS: Basophils % (Auto) 0.6 % (0.0-1.8); Eosinophils # (Auto) 0.1 K/mm3 (0.0-0.4); Eosinophils % (Auto) 2.7 % (0.0-4.3); Hematocrit 37.7 % (30.3-42.9); Hemoglobin 12.4 gm/dl (10.1-14.3); Lymphocytes # (Auto) 1.6 K/mm3 (1.2-5.4); Lymphocytes % (Auto) 33.7 % (13.4-35.0); Mean Corpuscular HGB Conc 33 % (30-34); Mean Corpuscular Volume 86 fl (79-97); Monocytes # (Auto) 0.4 K/mm3 (0.0-0.8); Monocytes % (Auto) 8.7 % (0.0-7.3); Platelet Count 273 K/mm3 (140-440); Red Blood Count 4.39 M/mm3 (3.65-5.03)
[2019-09-29 09:53] LABS: INR 0.82 (0.87-1.13)
[2019-09-29 09:54] LABS: Partial Thromboplastin Time 27.9 Sec. (24.2-36.6)
[2019-09-29 09:58] LABS: Thrombin Time 15.6 Sec. (15.1-19.6)
[2019-09-29 13:37] VITALS: BP 106/68
== END 2019-09-29 13:36 | disposition home or self-care (01) ==
LOC: ED 08:10
DX: R40.4 Transient alteration of awareness (principal); I10 Essential (primary) hypertension; J45.909 Unspecified asthma, uncomplicated; Z86.73 Personal history of transient ischemic attack (TIA), and cerebral infarction without residual deficits; Z98.51 Tubal ligation status; Z87.891 Personal history of nicotine dependence; Z88.6 Allergy status to analgesic agent; Z91.018 Allergy to other foods; Z88.8 Allergy status to other drugs, medicaments and biological substances
CPT/HCPCS: 36415; 70450; 80048; 80076; 82140; 82550; 82553; 82962; 84484; 85025; 85610; 85670; 85730; 93005; 93010; 96374; 99284; J2060